=== PATIENT | male | born 1945 | race Caucasian/White ===

== ENCOUNTER → 2016-10-21 | Outpatient (CLI) | payer MEDICARE, OTHER ==
--- NOTE | 2016-10-21 12:20 | FL ---
Modified barium swallow. HISTORY: Dysphagia. Modified barium swallow was performed with the department of speech pathology. The patient was prese nted with various consistencies of barium. There is no evidence for aspiration or penetration. Full report is to follow from the department of speech pathology. Impression: Normal study.
== END | disposition home or self-care (01) ==
LOC: RADFLMAIN 11:07
PROVIDERS: ATTEND Otolaryngology
DX: R13.10 Dysphagia, unspecified (principal)
CPT/HCPCS: 74230

== ENCOUNTER 2016-12-03 00:56 | Inpatient (IN) | payer MEDICARE, OTHER ==
[2016-12-03] MEDS ORDERED: ASPIRIN 81 MG CHEW PO STA (01:13)
[2016-12-03] MEDS ORDERED: NITROGLYCERIN OINT 1 INCH/GM PACKET TOPICAL STA (01:13)
--- NOTE | 2016-12-03 01:16 | ED ---
General Adult HPI - General Chief complaint: Chest Pain Stated complaint: chest pain Time Seen by Provider: 12/03/16 01:03 Source: patient, RN notes reviewed Mode of arrival: wheelchair Limitations: no limitations - History of Present Illness Initial comments: Patient is a pleasant 71-year-old male presenting to the emergency department complaining of chest discomfort. Onset was around 4:30 while golfing. Discomfort has progressively worsened since that time. Discomfort feels somewhat sharp in the left anterior wall. No dyspnea, nausea, or diaphoresis. No history of similar symptoms previously. No leg pain or swelling. No radiation. - Related Data Home Medications Medication Instructions Recorded Confirmed Gabapentin [Neurontin] 300 mg PO HS 10/01/15 10/01/15 Latanoprost Ophth [Xalatan 0.005%] 1 drops BOTH EYES HS 10/01/15 10/01/15 Levothyroxine Sodium [Synthroid] 150 mcg PO DAILY 10/01/15 10/01/15 Simvastatin [Zocor] 40 mg PO HS 10/01/15 10/01/15 Previous Rx's Medication Instructions Recorded Aspirin 325 mg PO BID #60 tab 10/02/15 Docusate [Colace] 100 mg PO DAILY #30 capsule 10/02/15 Famotidine [Pepcid] 20 mg PO DAILY #30 tablet 10/02/15 HYDROcodone/APAP 7.5-325MG [[place] 1 - 2 each PO Q6HR PRN #40 tab 10/02/15 7.5] traMADol HCl [Ultram] 50 mg PO Q6H PRN #40 tab 10/02/15 Allergies Allergy/AdvReac Type Severity Reaction Status Date / Time No Known Allergies Allergy Verified 12/03/16 01:00 Review of Systems ROS Statement: Those systems with pertinent positive or pertinent negative responses have been documented in the HPI. ROS Other: All systems not noted in ROS Statement are negative. Constitutional: Denies: fever Eyes: Denies: eye pain ENT: Denies: ear pain Respiratory: Denies: cough, dyspnea Cardiovascular: Reports: chest pain Endocrine: Denies: fatigue Gastrointestinal: Denies: abdominal pain Genitourinary: Denies: dysuria Musculoskeletal: Denies: back pain Skin: Denies: rash Neurological: Denies: weakness Past Medical History Past Medical History: Coronary Artery Disease (CAD), Cancer, Eye Disorder, GERD/ Reflux, Hyperlipidemia, Osteoarthritis (OA), Thyroid Disorder Additional Past Medical History / Comment(s): MILD CA 1995; RECENT CV W/U - APPROVED FOR SURGERY, CLEARANCE ON CHART. HX CA PARATHYROID. OCC GERD. USING RX FOR PRE-GLAUCOMA. HAS "BAD NECK", C6-7; SLEEPS IN [place]. History of Any Multi-Drug Resistant Organisms: None Reported Past Surgical History: Orthopedic Surgery Additional Past Surgical History / Comment(s): HEMORROIDECTOMY. HAMMER TOE. THYROIDECTOMY. Past Anesthesia/Blood Transfusion Reactions: No Reported Reaction Past Psychological History: No Psychological Hx Reported Smoking Status: Former smoker Past Alcohol Use History: Daily Past Drug Use History: None Reported - Past Family History Mother Family Medical History: No Reported History General Exam Limitations: no limitations General appearance: alert, in no apparent distress Head exam: Present: atraumatic Eye exam: Present: normal appearance, PERRL ENT exam: Present: normal oropharynx Neck exam: Present: normal inspection Respiratory exam: Present: normal lung sounds bilaterally, chest wall tenderness (Mild tenderness left anterior chest) Cardiovascular Exam: Present: regular rate, normal rhythm Expanded Peripheral pulses: 2+: Radial (R), Radial (L), Posterior Tibialis (R), Posterior Tibialis (L) GI/Abdominal exam: Present: soft. Absent: tenderness Extremities exam: Present: normal inspection. Absent: pedal edema, calf tenderness Neurological exam: Present: alert Psychiatric exam: Present: normal affect, normal mood Skin exam: Present: normal color Course Vital Signs 12/03/16 12/03/16 12/03/16 00:58 01:34 02:11 Temperature 97.5 F L Pulse Rate 75 81 63 Respiratory 18 18 18 Rate Blood Pressure 194/91 169/81 171/77 O2 Sat by Pulse 98 96 96 Oximetry EKG Findings - EKG Comments: EKG Findings:: Normal sinus rhythm 70. GA 194. QRS 92. QT 394. QTC 425. Normal axis. Normal QRS. No acute ST change. Medical Decision Making - Medical Decision Making Patient reevaluated and resting comfortably in bed. Case discussed with Dr. Barrios, who will admit his patient. Patient and family updated on results and plan. - Lab Data Result diagrams: 12/03/16 01:15 12/03/16 01:15 Lab Results 12/03/16 12/03/16 12/03/16 Range/Units 01:15 01:15 01:15 WBC 10.1 (3.8-10.6) k/uL RBC 4.42 (4.30-5.90) m/uL Hgb 14.9 (13.0-17.5) gm/dL Hct 42.3 (39.0-53.0) % MCV 95.7 (80.0-100.0) fL MCH 33.7 (25.0-35.0) pg MCHC 35.2 (31.0-37.0) g/dL RDW 13.7 (11.5-15.5) % Plt Count 169 (150-450) k/uL Neutrophils % 68 % Lymphocytes % 21 % Monocytes % 5 % Eosinophils % 3 % Basophils % 0 % Neutrophils # 6.9 (1.3-7.7) k/uL Lymphocytes # 2.1 (1.0-4.8) k/uL Monocytes # 0.5 (0-1.0) k/uL Eosinophils # 0.3 (0-0.7) k/uL Basophils # 0.0 (0-0.2) k/uL PT (9.0-12.0) sec INR (<1.1) APTT (22.0-30.0) sec D-Dimer (<0.60) mg/L FEU Sodium 140 (137-145) mmol/L Potassium 4.3 (3.5-5.1) mmol/L Chloride 106 (98-107) mmol/L Carbon Dioxide 22 (22-30) mmol/L Anion Gap 12 mmol/L BUN 15 (9-20) mg/dL Creatinine 0.90 (0.66-1.25) mg/dL Est GFR (MDRD) Af Amer >60 (>60 ml/min/1.73 sqM) Est GFR (MDRD) Non-Af >60 (>60 ml/min/1.73 sqM) Glucose 115 H (74-99) mg/dL Calcium 9.4 (8.4-10.2) mg/dL Magnesium 1.7 (1.6-2.3) mg/dL Total Bilirubin 0.8 (0.2-1.3) mg/dL AST 45 (17-59) U/L ALT 66 (21-72) U/L Alkaline Phosphatase 53 (38-126) U/L Total Creatine Kinase 81 (55-170) U/L CK-MB (CK-2) 0.8 (0.0-2.4) ng/mL CK-MB (CK-2) Rel Index 1.0 Troponin I <0.012 (0.000-0.034) ng/mL Total Protein 7.0 (6.3-8.2) g/dL Albumin 4.2 (3.5-5.0) g/dL 12/03/16 Range/Units 01:15 WBC (3.8-10.6) k/uL RBC (4.30-5.90) m/uL Hgb (13.0-17.5) gm/dL Hct (39.0-53.0) % MCV (80.0-100.0) fL MCH (25.0-35.0) pg MCHC (31.0-37.0) g/dL RDW (11.5-15.5) % Plt Count (150-450) k/uL Neutrophils % % Lymphocytes % % Monocytes % % Eosinophils % % Basophils % % Neutrophils # (1.3-7.7) k/uL Lymphocytes # (1.0-4.8) k/uL Monocytes # (0-1.0) k/uL Eosinophils # (0-0.7) k/uL Basophils # (0-0.2) k/uL PT 10.6 (9.0-12.0) sec INR 1.0 (<1.1) APTT 23.0 (22.0-30.0) sec D-Dimer 0.53 (<0.60) mg/L FEU Sodium (137-145) mmol/L Potassium (3.5-5.1) mmol/L Chloride (98-107) mmol/L Carbon Dioxide (22-30) mmol/L Anion Gap mmol/L BUN (9-20) mg/dL Creatinine (0.66-1.25) mg/dL Est GFR (MDRD) Af Amer (>60 ml/min/1.73 sqM) Est GFR (MDRD) Non-Af (>60 ml/min/1.73 sqM) Glucose (74-99) mg/dL Calcium (8.4-10.2) mg/dL Magnesium (1.6-2.3) mg/dL Total Bilirubin (0.2-1.3) mg/dL AST (17-59) U/L ALT (21-72) U/L Alkaline Phosphatase (38-126) U/L Total Creatine Kinase (55-170) U/L CK-MB (CK-2) (0.0-2.4) ng/mL CK-MB (CK-2) Rel Index Troponin I (0.000-0.034) ng/mL Total Protein (6.3-8.2) g/dL Albumin (3.5-5.0) g/dL - Radiology Data Radiology results: image reviewed (Chest x-ray shows no acute process) Disposition Clinical Impression: Unstable angina pectoris Disposition: ADMITTED IP TO THIS [facility] Referrals: Jeffrey Barrios MD [Primary Care Provider] - 1-2 days Decision Time: 02:41
[2016-12-03 01:25] LABS: Basophils % (A) 0 %; CH 34.4; CHCM 36.1; Eosinophils # (A) 0.3 k/uL (0-0.7); Eosinophils % (A) 3 %; HCT 42.3 % (39.0-53.0); HGB 14.9 gm/dL (13.0-17.5); Luc # (Auto) 0.17; Luc % (Auto) 2; Lymphocytes # (A) 2.1 k/uL (1.0-4.8); Lymphocytes % (A) 21 %; MCH 33.7 pg (25.0-35.0); MCHC 35.2 g/dL (31.0-37.0); MCV 95.7 fL (80.0-100.0); Monocytes # (A) 0.5 k/uL (0-1.0); Monocytes % (A) 5 %; Neutrophils # (A) 6.9 k/uL (1.3-7.7); Neutrophils % (A) 68 %; RBC 4.42 m/uL (4.30-5.90); RDW 13.7 % (11.5-15.5); WBC 10.1 k/uL (3.8-10.6); WBC (Perox) 9.32
[2016-12-03 01:34] LABS: ALT 66 U/L (21-72); AST 45 U/L (17-59); Alkaline Phosphatase 53 U/L (38-126); Anion Gap 12 mmol/L; Blood Urea Nitrogen 15 mg/dL (9-20); Calcium 9.4 mg/dL (8.4-10.2); Carbon Dioxide 22 mmol/L (22-30); Chloride 106 mmol/L (98-107); Glucose 115 mg/dL (74-99); Magnesium 1.7 mg/dL (1.6-2.3); Non-African American GFR(MDRD) >60 (>60 ml/min/1.73 sqM); Potassium 4.3 mmol/L (3.5-5.1); Sodium 140 mmol/L (137-145); Total Bilirubin 0.8 mg/dL (0.2-1.3)
[2016-12-03 01:45] LABS: Prothrombin Time 10.6 sec (9.0-12.0)
[2016-12-03 01:58] LABS: Creatine Kinase 81 U/L (55-170)
--- NOTE | 2016-12-03 02:10 | XR ---
EXAM: XR Chest, 2 Views CLINICAL HISTORY: Reason: Chest Pain TECHNIQUE: Frontal and lateral views of the chest. COMPARISON: No relevant prior studies available. FINDINGS: Lungs: Hypoventilatory examination. No focal consolidation. Pleural space: Unremarkable. No pneumothorax. Heart: Unremarkable. No cardiomegaly. Mediastinum: Unremarkable. Bones/joints: No acute osseous abnormality. Tubes, lines and devices: Telemetry leads overlie the patient. IMPRESSION: Hypoventilatory examination without evidence of acute cardiopulmonary disease.
[2016-12-03 02:12] LABS: Creatine Kinase MB 0.8 ng/mL (0.0-2.4); Troponin I <0.012 ng/mL (0.000-0.034)
[2016-12-03] MEDS ORDERED: HEPARIN SODIUM,PORCINE 5,000 UNIT/ML 1 ML VIAL IV PRN (02:42)
[2016-12-03] MEDS ORDERED: HEPARIN SODIUM,PORCINE 5,000 UNIT/ML 1 ML VIAL IV ONE (02:42)
[2016-12-03] MEDS ORDERED: NITROGLYCERIN SL TABS 0.4 MG TAB SUBLINGUAL PRN ×2 (02:42→15:12)
[2016-12-03] MEDS ORDERED: HEPARIN SODIUM,PORCINE/D5W PMX 25,000 UNIT in DEXTROSE/WATER 1 500ML.BAG IV SCH (02:45)
[2016-12-03 04:10] VITALS: BMI 30.7
[2016-12-03] MEDS ORDERED: NITROGLYCERIN OINT 1 INCH/GM PACKET TOPICAL SCH (07:00)
[2016-12-03 08:23] LABS: Mean Platelet Volume 7.4
[2016-12-03 08:36] LABS: Creatine Kinase 47 U/L (55-170)
[2016-12-03 08:49] LABS: Creatine Kinase MB 0.7 ng/mL (0.0-2.4); Troponin I <0.012 ng/mL (0.000-0.034)
--- NOTE | 2016-12-03 11:03 | P.CRDCN ---
History of Present Illness Consult date: 12/03/16 Requesting physician: Jeffrey Barrios Consult reason: chest pain Chief complaint: Chest pain History of present illness: This is a pleasant 71-year-old gentleman with history of hyperlipidemia, hypothyroidism, GERD, who follows with Dr. Dr. Grimaldo in the office. He presents to the hospital with symptoms of chest discomfort. Patient states that he was golfing yesterday and noticed some chest pain and heaviness in the left side of his chest. He denies any associated symptoms of shortness of breath, diaphoresis, or nausea. He continued to complete his golf game, stating that the pain would come and go throughout the day. Around 10:00 last evening the pain returned, this time it did not subside and for this reason he came to the emergency room for further evaluation. Patient denies any prior history of coronary artery disease, he had a Lexiscan stress test performed in September 2015 at the office which was negative for any reversible ischemia. An echocardiogram with Doppler study was also performed at that time which revealed a normal left ventricular systolic function. Let pressure on arrival here 194/90 with a heart rate in the 70s, 90% on room air. Blood pressure this morning 138/60 with heart rate in the 50s, temperature 97.7. CBC normal. D-dimer negative. Potassium 4.3, BUN 15, creatinine 0.9. Troponins were negative 2. Magnesium level I.7. EKG on presentation here shows normal sinus rhythm with inferior Q waves and T-wave inversion in the inferior leads. Subsequent EKG performed this morning shows a normal sinus rhythm with nonspecific ST-T changes in the inferior leads. At the time of my examination this morning, patient is currently chest pain free. He is currently on aspirin , IV heparin and Nitropaste. Past Medical History Past Medical History: Coronary Artery Disease (CAD), Cancer, Eye Disorder, GERD/ Reflux, Hyperlipidemia, Osteoarthritis (OA), Thyroid Disorder Additional Past Medical History / Comment(s): MILD [place] 1995; RECENT CV W/U - APPROVED FOR SURGERY, CLEARANCE ON CHART. HX CA PARATHYROID. OCC GERD. USING RX FOR PRE-GLAUCOMA. HAS "BAD NECK", C4-5 - epidural injections and neurontin; SLEEPS [place]. History of Any Multi-Drug Resistant Organisms: None Reported Past Surgical History: Orthopedic Surgery Additional Past Surgical History / Comment(s): HEMORROIDECTOMY. HAMMER TOE. THYROIDECTOMY, left hip replaced 09/2015 Past Anesthesia/Blood Transfusion Reactions: No Reported Reaction Past Psychological History: No Psychological Hx Reported Smoking Status: Former smoker Past Alcohol Use History: Daily Past Drug Use History: None Reported - Past Family History Mother Family Medical History: No Reported History Medications and Allergies Home Medications Medication Instructions Recorded Confirmed Type Gabapentin [Neurontin] 300 mg PO HS 10/01/15 12/03/16 History Latanoprost Ophth [Xalatan 0.005%] 1 drops BOTH EYES HS 10/01/15 12/03/16 History Levothyroxine Sodium [Synthroid] 150 mcg PO DAILY 10/01/15 12/03/16 History Simvastatin [Zocor] 40 mg PO HS 10/01/15 12/03/16 History Aspirin 325 mg PO DAILY 12/03/16 12/03/16 History Celecoxib [CeleBREX] 200 mg PO DAILY PRN 12/03/16 12/03/16 History Allergies Allergy/AdvReac Type Severity Reaction Status Date / Time No Known Allergies Allergy Verified 12/03/16 08:07 Physical Exam Vitals: Vital Signs Temp Pulse Pulse Pulse Resp BP BP 12/03/16 08:00 16 12/03/16 07:43 12/03/16 07:42 97.7 F 56 L 16 138/66 12/03/16 04:00 97.9 F 58 L 62 18 162/77 12/03/16 03:19 97.7 F 63 18 157/82 12/03/16 02:11 63 18 171/77 12/03/16 01:34 81 18 169/81 12/03/16 00:58 97.5 F L 75 18 194/91 Pulse Ox 12/03/16 08:00 12/03/16 07:43 97 12/03/16 07:42 97 12/03/16 04:00 97 12/03/16 03:19 97 12/03/16 02:11 96 12/03/16 01:34 96 12/03/16 00:58 98 Intake and Output 12/02/16 12/03/16 12/03/16 22:59 06:59 14:59 Other: Voiding Method Toilet Toilet # Voids 2 Weight 99.79 kg PHYSICAL EXAMINATION: HEENT: [Head is atraumatic, normocephalic. Pupils equal, round. Neck is supple. There is no elevated jugular venous pressure.] HEART EXAMINATION: [Heart S1, S2 normal. No murmur or gallop heard.] CHEST EXAMINATION:[ Lungs are clear to auscultation and precussion. No chest wall tenderness is noted on palpation or with deep breathing.] ABDOMEN: [ Soft, nontender. Bowel sounds are heard. No organomegaly noted]. EXTREMITIES:[ 2+ peripheral pulses with no evidence of peripheral edema and no calf tenderness noted]. NEUROLOGIC [patient is awake, alert and oriented -3.] . Results 12/03/16 07:52 12/03/16 01:15 Cardiac Enzymes 12/03/16 12/03/16 12/03/16 Range/Units 01:15 01:15 07:52 AST 45 (17-59) U/L CK-MB (CK-2) 0.8 0.7 (0.0-2.4) ng/mL Troponin I <0.012 <0.012 (0.000-0.034) ng/mL Coagulation 12/03/16 Range/Units 01:15 PT 10.6 (9.0-12.0) sec APTT 23.0 (22.0-30.0) sec CBC 12/03/16 12/03/16 Range/Units 01:15 07:52 WBC 10.1 (3.8-10.6) k/uL RBC 4.42 (4.30-5.90) m/uL Hgb 14.9 (13.0-17.5) gm/dL Hct 42.3 (39.0-53.0) % Plt Count 169 159 (150-450) k/uL Comprehensive Metabolic Panel 12/03/16 Range/Units 01:15 Sodium 140 (137-145) mmol/L Potassium 4.3 (3.5-5.1) mmol/L Chloride 106 (98-107) mmol/L Carbon Dioxide 22 (22-30) mmol/L BUN 15 (9-20) mg/dL Creatinine 0.90 (0.66-1.25) mg/dL Glucose 115 H (74-99) mg/dL Calcium 9.4 (8.4-10.2) mg/dL AST 45 (17-59) U/L ALT 66 (21-72) U/L Alkaline Phosphatase 53 (38-126) U/L Total Protein 7.0 (6.3-8.2) g/dL Albumin 4.2 (3.5-5.0) g/dL Current Medications Generic Name Dose Route Start Last Admin Trade Name Freq PRN Reason Stop Dose Admin Aspirin 325 mg 12/04/16 09:00 Aspirin PO DAILY [facility] Heparin Sodium (Porcine) 0 unit 12/03/16 02:42 Heparin IV Q6HR PRN Low PTT Protocol Heparin Sodium/Dextrose 25,000 500 mls @ 20.15 mls/hr 12/03/16 02:45 03:16 unit/ IV Solution IV 10.02 units/kg/hr .Q24H MARNI 20 mls/hr Protocol Administration 10.1 UNITS/KG/HR Nitroglycerin 1 inch 12/03/16 07:00 Nitro-Bid Oint TOPICAL Q6HR [facility] Nitroglycerin 0.4 mg 12/03/16 02:42 Nitrostat SUBLINGUAL Q5M PRN Chest Pain Intake and Output 12/02/16 12/03/16 12/03/16 22:59 06:59 14:59 Other: Voiding Method Toilet Toilet # Voids 2 Weight 99.79 kg 12/03/16 07:52 12/03/16 01:15 EKG Interpretations (text) EKG shows normal sinus rhythm with inferior Q waves and nonspecific inferior ST- T wave changes Assessment and Plan Plan: Assessment and plan #1 chest discomfort suggestive of possible unstable angina. 2 troponins have been negative. EKG shows normal sinus rhythm with inferior Q waves and nonspecific ST-T wave changes in the inferior leads. Most recent Veronica scan was performed in September 2015 which did not reveal any reversible ischemia. #2 hypothyroidism #3 hyperlipidemia #4 osteoarthritis #5 hypertension, no prior documented history of hypertension Plan We will obtain an echocardiogram with Doppler study as well as a third troponin value. Continue statin, decrease aspirin to 81 mg daily, Ativan ALLY inhibitor to his medication regime for more optimal blood pressure control. Further recommendations to follow. DNP note has been reviewed, I agree with a documented findings and plan of care. Patient was seen and examined.
[2016-12-03] MEDS ORDERED: ACETAMINOPHEN TAB 325 MG TAB PO PRN (11:45)
--- NOTE | 2016-12-03 11:49 | P.HPIM ---
History of Present Illness 71-year-old male admitted from the emergency room with complaints of chest pain post golfing. States sharp pain is gone but continues with chest pressure. Patient to be evaluated by cardiology. Patient does have history of hyperlipidemia hypothyroidism and coronary artery disease possible [place] in 1995 Review of Systems Cardiovascular: Reports chest pain Past Medical History Past Medical History: Coronary Artery Disease (CAD), Cancer, Eye Disorder, GERD/ Reflux, Hyperlipidemia, Osteoarthritis (OA), Thyroid Disorder Additional Past Medical History / Comment(s): MILD [place] 1995; RECENT CV W/U - APPROVED FOR SURGERY, CLEARANCE ON CHART. HX CA PARATHYROID. OCC GERD. USING RX FOR PRE-GLAUCOMA. HAS "BAD NECK", C4-5 - epidural injections and neurontin; SLEEPS IN [place]. History of Any Multi-Drug Resistant Organisms: None Reported Past Surgical History: Orthopedic Surgery Additional Past Surgical History / Comment(s): HEMORROIDECTOMY. HAMMER TOE. THYROIDECTOMY, left hip replaced 09/2015 Past Anesthesia/Blood Transfusion Reactions: No Reported Reaction Past Psychological History: No Psychological Hx Reported Smoking Status: Former smoker Past Alcohol Use History: Daily Past Drug Use History: None Reported - Past Family History Mother Family Medical History: No Reported History Medications and Allergies Home Medications Medication Instructions Recorded Confirmed Type Gabapentin [Neurontin] 300 mg PO HS 10/01/15 12/03/16 History Latanoprost Ophth [Xalatan 0.005%] 1 drops BOTH EYES HS 10/01/15 12/03/16 History Levothyroxine Sodium [Synthroid] 150 mcg PO DAILY 10/01/15 12/03/16 History Simvastatin [Zocor] 40 mg PO HS 10/01/15 12/03/16 History Aspirin 325 mg PO DAILY 12/03/16 12/03/16 History Celecoxib [CeleBREX] 200 mg PO DAILY PRN 12/03/16 12/03/16 History Allergies Allergy/AdvReac Type Severity Reaction Status Date / Time No Known Allergies Allergy Verified 12/03/16 08:07 Physical Exam Vitals: Vital Signs Temp Pulse Pulse Pulse Resp BP BP 12/03/16 08:00 16 12/03/16 07:43 12/03/16 07:42 97.7 F 56 L 16 138/66 12/03/16 04:00 97.9 F 58 L 62 18 162/77 12/03/16 03:19 97.7 F 63 18 157/82 12/03/16 02:11 63 18 171/77 12/03/16 01:34 81 18 169/81 12/03/16 00:58 97.5 F L 75 18 194/91 Pulse Ox 12/03/16 08:00 12/03/16 07:43 97 12/03/16 07:42 97 12/03/16 04:00 97 12/03/16 03:19 97 12/03/16 02:11 96 12/03/16 01:34 96 12/03/16 00:58 98 Intake and Output 12/02/16 12/03/16 12/03/16 22:59 06:59 14:59 Other: Voiding Method Toilet Toilet # Voids 2 Weight 99.79 kg - Constitutional General appearance: mild distress - EENT Eyes: PERRLA Ears: bilateral: normal - Neck Neck: normal ROM - Respiratory Respiratory: bilateral: CTA - Cardiovascular Rhythm: regular - Gastrointestinal General gastrointestinal: soft - Integumentary Integumentary: normal - Neurologic Neurologic: CNII-XII intact - Psychiatric Psychiatric: A&O x's 3, appropriate affect, intact judgment & insight Results CBC & Chem 7: 12/03/16 07:52 12/03/16 01:15 Labs: Abnormal Lab Results - Last 24 Hours (Table) 12/03/16 12/03/16 Range/Units 01:15 07:52 Glucose 115 H (74-99) mg/dL Total Creatine Kinase 47 L (55-170) U/L Chest x-ray: report reviewed Thrombosis Risk Factor Assmnt - Choose All That Apply Each Factor Represents 1 point: Obesity (BMI >25) Each Risk Factor Represents 2 Points: Age 61-74 years Thrombosis Risk Factor Assessment Total Risk Factor Score: 3 Thrombosis Risk Factor Assessment Level: Moderate Risk Assessment and Plan Plan: Assessment Unstable angina troponins negative 2 EKG changes history of coronary disease with possible [place] in the past Hypothyroidism Hyperlipidemia Osteoarthritis Hypertension Plan Continue consultation with cardiology possible cardiac cath
[2016-12-03] MEDS: LISINOPRIL 5 MG TAB PO SCH (12:09)
[2016-12-03] MEDS ORDERED: MELOXICAM 7.5 MG TAB PO PRN (12:32)
[2016-12-03 13:57] LABS: Creatine Kinase 44 U/L (55-170)
[2016-12-03 14:09] LABS: Creatine Kinase MB 0.5 ng/mL (0.0-2.4); Troponin I <0.012 ng/mL (0.000-0.034)
[2016-12-03] MEDS ORDERED: ASPIRIN 325 MG TAB PO STA (15:12)
[2016-12-03] MEDS ORDERED: SODIUM CHLORIDE 0.9% 1,000 ML in EMPTY BAG 1 BAG IV ONE (15:12)
[2016-12-03] MEDS ORDERED: ALPRAZolam 0.5 MG TAB PO PRN (15:12)
[2016-12-03] MEDS ORDERED: ATORVASTATIN 80 MG TAB PO STA (15:12)
[2016-12-03] MEDS ORDERED: ALPRAZolam 0.25 MG TAB PO PRN (15:12)
[2016-12-03] MEDS: LEVOTHYROXINE 75 MCG TAB PO SCH (16:47)
[2016-12-03] MEDS: ATORVASTATIN 20 MG TAB PO SCH (20:10)
[2016-12-03] MEDS ORDERED: GABAPENTIN 300 MG CAP PO SCH (21:00)
[2016-12-03] MEDS ORDERED: LATANOPROST 0.005% OPHTH DROPS 2.5 ML BTL BOTH EYES SCH (21:00)
[2016-12-04 05:57] LABS: Cholesterol 159 mg/dL (<200); HDL Cholesterol 56 mg/dL (40-60); Triglycerides 139 mg/dL (<150)
[2016-12-04] MEDS: LEVOTHYROXINE 75 MCG TAB PO SCH (06:15)
[2016-12-04] MEDS: LISINOPRIL 5 MG TAB PO SCH (06:15)
[2016-12-04] MEDS: ATORVASTATIN 20 MG TAB PO SCH (06:18)
[2016-12-04] MEDS ORDERED: LIDOCAINE 2% INJ 20 MG/ML (20 ML MDV) ONE (07:17)
[2016-12-04] MEDS ORDERED: IV FLUID CONTINUATION 1,000 ML IV ONE (07:30)
[2016-12-04] MEDS ORDERED: MIDAZOLAM 2 MG/2 ML VIAL ONE (07:39)
[2016-12-04] MEDS ORDERED: MIDAZOLAM 2 MG/2 ML VIAL IV ONE (07:39)
[2016-12-04] MEDS ORDERED: LIDOCAINE 2% INJ 20 MG/ML SQ ONE (07:40)
[2016-12-04] MEDS ORDERED: fentaNYL (PF) 50 MCG/ML 2 ML AMP IV ONE (07:41)
[2016-12-04] MEDS ORDERED: fentaNYL (PF) 50 MCG/ML 2 ML AMP ONE (07:41)
[2016-12-04] MEDS ORDERED: IOHEXOL 350 MG/ML 125ML BOTTLE INJ ONE (07:55)
[2016-12-04] MEDS ORDERED: RX INFO: IV CONTRAST WAS GIVEN 1 EACH MISC MISCELLANE PRN (08:02)
--- NOTE | 2016-12-04 08:08 | P.PCN ---
Date of Procedure: 12/04/16 Preoperative Diagnosis: Unstable angina Postoperative Diagnosis: Normal coronary arteries Procedure(s) Performed: Left heart catheterization with left ventriculography Implants: Indications for Procedure: Operative Findings: Description of Procedure: HISTORY: This is a 71-year-old gentleman with history of hypertension and hypercholesterolemia who was admitted to the hospital with complaints of prolonged chest pain with a minor EKG abnormalities. Patient is advised to have cardiac catheterization for definitive diagnosis. Patient and family were explained the risks and benefits of the procedure. CONSENT:I have discussed the risks, benefits and alternative therapies for the above-mentioned procedure and for both sedation/analgesia as well as necessary blood product administration, if indicated, as they pertain to this patient. The patient has indicated understanding and acceptance of the risks and procedures discussed. CONSCIOUS SEDATION: Patient was given 1 mg of Versed and 50 g of fentanyl for sedation. The duration of the sedation was 21 minutes. PROCEDURE: Patient was brought to the lab in a fasting state. Patient was given some IV sedation. The right groin is infiltrated with lidocaine and right femoral artery was entered using Seldinger technique. A 6-Dutch catheter was left in place and selective coronary arteriography and left ventriculography was performed. Patient tolerated the procedure well. Femoral angiogram was performed and Angio-Seal was applied for hemostasis. No immediate complications were noted and patient was transferred to [facility] in a stable condition HEMODYNAMICS: The aortic pressure is 160/80. Left ankle end-diastolic pressure about 12. There was no gradient across the aortic valve. SELECTIVE CORONARY ARTERIOGRAPHY: LEFT MAIN: Normal length and patent. THE LEFT ANTERIOR DESCENDING CORONARY ARTERY: This is a moderate caliber vessel giving rise a couple of septal and diagonal branches. It the LAD and branches are free of any significant occlusive disease. THE LEFT CIRCUMFLEX AND IS CORONARY ARTERY: This is a good caliber vessel giving rise good-sized OM branch and free of occlusive disease. THE RIGHT CORONARY ARTERY: This is dominant vessel free of occlusive disease LEFT VENTRICULOGRAPHY: Normal-sized cardiac silhouette with good systolic function FINAL IMPRESSION: #1. Normal coronary arteries #2. Normal LV function #3. Normal hemodynamics. #4 hypertension. PLAN: Maximum medical therapy and risk factor modification PROGNOSIS: Good
[2016-12-04] MEDS ORDERED: SODIUM CHLORIDE 0.9% 1,000 ML IV SCH (08:15)
[2016-12-04] MEDS ORDERED: ASPIRIN 325 MG TAB PO SCH ×2 (09:00)
[2016-12-04] MEDS ORDERED: ASPIRIN 81 MG CHEW PO SCH (09:00)
--- NOTE | 2016-12-04 10:26 | ECHOF ---
Referral Reason:chest pain MEASUREMENTS -------- HEIGHT: 157.5 cm WEIGHT: 99.8 kg BP: RVIDd: 2.9 cm (< 3.3) IVSd: 1.3 cm (0.6 - 1.1) LVIDd: 5.7 cm (3.9 - 5.3) LVPWd: 1.4 cm (0.6 - 1.1) IVSs: 1.7 cm LVIDs: 3.0 cm LVPWs: 1.4 cm LA Diam: 3.8 cm (2.7 - 3.8) LAESV Index (A-L): 28.88 ml/m Ao Diam: 3.6 cm (2.0 - 3.7) AV Cusp: 1.8 cm (1.5 - 2.6) LA Diam: 4.6 cm (2.7 - 3.8) MV E Wesly: 0.58 m/s MV DecT: 210 ms MV A Wesly: 0.68 m/s MV E/A Ratio: 0.85 RAP: 5.00 mmHg RVSP: 27.32 mmHg FINDINGS -------- Sinus rhythm. This was a technically adequate study. There is mild concentric left ventricular hypertrophy. Overall left ventricular systolic function is low-normal with, an EF between 50 - 55 %. The right ventricle is normal in size. Normal LA size by volume 22+/-6 ml/m2. The right atrial size is normal. There is mild aortic valve sclerosis. There is no evidence of aortic regurgitation. Mild mitral annular calcification present. Mild mitral regurgitation is present. Mild tricuspid regurgitation present. There is no evidence of pulmonary hypertension. The right ventricular systolic pressure, as measured by Doppler, is 27.32mmHg. There is no pulmonic regurgitation present. The aortic root size is normal. There is no pericardial effusion. CONCLUSIONS -------- 1. There is mild concentric left ventricular hypertrophy. 2. The aortic root size is normal. 3. There is no pericardial effusion. 4. Overall left ventricular systolic function is low-normal with, an EF between 50 - 55 %. 5. There is mild aortic valve sclerosis. 6. Mild mitral annular calcification present. 7. Mild mitral regurgitation is present. 8. Mild tricuspid regurgitation present. 9. There is no evidence of pulmonary hypertension. 10. The right ventricular systolic pressure, as measured by Doppler, is 27.32mmHg. 11. There is no pulmonic regurgitation present. DRAMATIC CRITIC: Rowan Myers RDCS
--- NOTE | 2016-12-04 11:01 | P.DS ---
Providers Date of admission: 12/03/16 07:26 Expected date of discharge: 12/04/16 Attending physician: Jeffrey Barrios Consults: 12/03/16 02:42 Consult Physician Urgent Consulting Provider: Nancy Grimaldo Consult Reason/Comments: ua Do you want consulting provider notified?: Yes Primary care physician: Jeffrey Barrios Hospital Course: 71-year-old male is admitted to the emergency room with complaints of chest pain progressive after golf loading. Patient was evaluated by cardiology had negative cardiac catheterization. Has been released by cardiology for discharge home. Plan for gallbladder workup outpatient Assessment chest pain troponins negative positive for EKG changes and negative cardiac catheterization Hypothyroidism Coronary artery disease Hyperlipidemia Osteoarthritis Hypertension Plan Follow-up with cardiology and family physician Dr. Jeffrey Barrios We'll do outpatient studies on gallbladder Plan - Discharge Summary New Discharge Prescriptions: No Action Simvastatin [Zocor] 40 mg PO HS Gabapentin [Neurontin] 300 mg PO HS Latanoprost Ophth [Xalatan 0.005%] 1 drops BOTH EYES HS Levothyroxine Sodium [Synthroid] 150 mcg PO DAILY Aspirin 325 mg PO DAILY Celecoxib [CeleBREX] 200 mg PO DAILY PRN PRN Reason: Pain Discharge Medication List Gabapentin [Neurontin] 300 mg PO HS 10/01/15 [History] Latanoprost Ophth [Xalatan 0.005%] 1 drops BOTH EYES HS 10/01/15 [History] Levothyroxine Sodium [Synthroid] 150 mcg PO DAILY 10/01/15 [History] Simvastatin [Zocor] 40 mg PO HS 10/01/15 [History] Aspirin 325 mg PO DAILY 12/03/16 [History] Celecoxib [CeleBREX] 200 mg PO DAILY PRN 12/03/16 [History] Follow up Appointment(s)/Referral(s): Jeffrey Barrios MD [Primary Care Provider] - 1-2 days
[2016-12-04 12:23] VITALS: BP 135/69; PULSE 60; RESP 19; TEMP 97.7
== END 2016-12-04 13:39 | disposition home or self-care (01) | DRG 287 ==
LOC: EC 00:56 → 3OBS 02:41 → OBSVTOIN 07:26
PROVIDERS: ADMIT Family Medicine; ATTEND Family Medicine
PROC: B2111ZZ Fluoroscopy of Multiple Coronary Arteries using Low Osmolar Contrast (ICD-10-PCS; 2016-12-04)
PROC: B2151ZZ Fluoroscopy of Left Heart using Low Osmolar Contrast (ICD-10-PCS; 2016-12-04)
PROC: 4A023N7 Measurement of Cardiac Sampling and Pressure, Left Heart, Percutaneous Approach (ICD-10-PCS; principal; 2016-12-04 07:30)
DX: R07.9 Chest pain, unspecified (principal); I10 Essential (primary) hypertension; E78.00 Pure hypercholesterolemia, unspecified; E78.5 Hyperlipidemia, unspecified; E03.9 Hypothyroidism, unspecified; I25.2 Old myocardial infarction; I25.10 Atherosclerotic heart disease of native coronary artery without angina pectoris; K21.9 Gastro-esophageal reflux disease without esophagitis; M19.91 Primary osteoarthritis, unspecified site; Z96.642 Presence of left artificial hip joint; Z87.891 Personal history of nicotine dependence; Z79.82 Long term (current) use of aspirin; Z79.899 Other long term (current) drug therapy
CPT/HCPCS: 36415; 71020; 80053; 80061; 82550; 82553; 83735; 84484; 85025; 85049; 85379; 85610; 85730; 93005; 93306; 93458; 94760; 96365; 96376; 99285

== ENCOUNTER → 2016-12-19 | Outpatient (CLI) | payer MEDICARE, OTHER ==
--- NOTE | 2016-12-19 08:53 | US ---
EXAMINATION TYPE: US gallbladder DATE OF EXAM: 12/19/2016 COMPARISON: NONE CLINICAL HISTORY: 71-year-old male R10 ABD PAIN. Patient stated had left chest wall pain while playin g golf last week requiring follow up hospitalization. TECHNIQUE: Multiple sonographic images of the right upper quadrant are obtained. FINDINGS: Liver Length: 17.0 cm Gallbladder Wall: 0.2 cm CBD: 0.4 cm Right Kidney: 12.0 x 6.5 x 5.2 cm Pancreas: Limited visualization of the pancreatic head and tail secondary to bowel gas. Visualized p ortions show no gross abnormality. Liver: Borderline enlarged. Echogenic with far field attenuation. This secondarily limits assessment for focal lesion. Gallbladder: No abnormal distention, wall thickening, pericholecystic fluid, or shadowing calculi. Evidence for sonographic Grider's sign: No CBD: wnl Right Kidney: clustered and shadowing lower pole renal stones = 1.1 x 0.7 x 0.5cm. No hydronephrosis . IMPRESSION: 1. Borderline hepatomegaly with moderate hepatic steatosis. Correlate with LFTs, lipid profile, and p atient risk factors. 2. 1.1 cm nonobstructive lower pole right renal calculus.
== END | disposition home or self-care (01) ==
LOC: RADUSWWP 07:59
PROVIDERS: ATTEND Family Medicine
DX: N20.0 Calculus of kidney (principal); R16.0 Hepatomegaly, not elsewhere classified; K76.0 Fatty (change of) liver, not elsewhere classified
CPT/HCPCS: 76705

== ENCOUNTER → 2019-04-22 | Outpatient (CLI) | payer MEDICARE, OTHER ==
--- NOTE | 2019-04-22 11:17 | XR ---
EXAMINATION TYPE: XR chest 2V DATE OF EXAM: 04/22/2019 COMPARISON: 11/25/2016 HISTORY: Cough for 6 months. History of thyroid carcinoma. TECHNIQUE: Frontal and lateral views of the chest are obtained. FINDINGS: There is no focal air space opacity, pleural effusion, or pneumothorax seen. The cardiac silhouette size is within normal limits. The osseous structures are intact. Minimal multilevel deg enerative changes of the spine. IMPRESSION: No acute cardiopulmonary process.
== END | disposition home or self-care (01) ==
LOC: RADXRMAIN 10:20
PROVIDERS: ATTEND Family Medicine
DX: R05 Cough (principal)
CPT/HCPCS: 71046

== ENCOUNTER 2020-07-18 08:55 | Day surgery (SDC) | payer MEDICARE, OTHER ==
[2020-07-16 10:37] VITALS: BMI 30.7
--- NOTE | 2020-07-18 08:11 | P.GSHP ---
History of Present Illness H&P Date: 07/18/20 CHIEF COMPLAINT: Colon screen HISTORY OF PRESENT ILLNESS: The patient is a 75-year-old male who presents for colon screen. Lower endoscopy was offered for further evaluation and management. PAST MEDICAL HISTORY: Please see list. PAST SURGICAL HISTORY: Please see list. MEDICATIONS: Please see list. ALLERGIES: Please see list. SOCIAL HISTORY: No illicit drug use FAMILY HISTORY: No reports of Crohn disease or ulcerative colitis. REVIEW OF ORGAN SYSTEMS: CONSTITUTIONAL: No reports of fevers or chills. PHYSICAL EXAM: VITAL SIGNS: Stable GENERAL: Well-developed pleasant in no acute distress. HEENT: No scleral icterus. Extraocular movements grossly intact. Moist buccal mucosa. NECK: Supple without lymphadenopathy. CHEST: Unlabored respirations. Equal bilateral excursions. CARDIOVASCULAR: Regular rate and rhythm. Distal 2+ pulses. ABDOMEN: Soft, nontender, nondistended. MUSCULOSKELETAL: No clubbing, cyanosis, or edema. ASSESSMENT: 1. Colon screen. PLAN: 1. Recommend proceeding with a lower endoscopy Past Medical History Past Medical History: Coronary Artery Disease (CAD), Cancer, Eye Disorder, GERD/Reflux, Hyperlipidemia, Myocardial Infarction ([place]), Osteoarthritis (OA), Thyroid Disorder Additional Past Medical History / Comment(s): MILD [place] 1995; HX CA PARATHYROID. OCC GERD. USING RX FOR PRE-GLAUCOMA. HAS "BAD NECK", C4-5 Last Myocardial Infarction Date:: 1995 History of Any Multi-Drug Resistant Organisms: None Reported Past Surgical History: Heart Catheterization, Joint Replacement, Orthopedic Surgery Additional Past Surgical History / Comment(s): HEMORROIDECTOMY. HAMMER TOE. THYROIDECTOMY, left hip replaced 09/2015 Past Anesthesia/Blood Transfusion Reactions: No Reported Reaction Smoking Status: Former smoker - Past Family History Mother Family Medical History: No Reported History Medications and Allergies Home Medications Medication Instructions Recorded Confirmed Type Latanoprost Ophth [Xalatan 0.005%] 1 drops BOTH EYES HS 10/01/15 07/16/20 History Levothyroxine Sodium [Synthroid] 150 mcg PO DAILY 10/01/15 07/16/20 History Simvastatin [Zocor] 40 mg PO HS 10/01/15 07/16/20 History Aspirin [Adult Low Dose Aspirin EC] 81 mg PO DAILY 07/16/20 07/16/20 History Multivitamins, Thera [Multivitamin 1 tab PO DAILY 07/16/20 07/16/20 History (formulary)] Allergies Allergy/AdvReac Type Severity Reaction Status Date / Time No Known Allergies Allergy Verified 07/16/20 10:25
[~2020-07-18 08:55] MED LIST: LACTATED RINGERS 1,000 ML IV SCH; LIDOCAINE 1% (10MG/ML) FOR IV START INTRADERMA PRN
[2020-07-18 09:38] VITALS: RESP 16; TEMP 97.4
[2020-07-18] MEDS ORDERED: PROPOFOL 10 MG/ML 20 ML VIAL IV ONE (10:23)
--- NOTE | 2020-07-18 10:56 | P.PCN ---
Date of Procedure: 07/18/20 Description of Procedure: PREOPERATIVE DIAGNOSIS: Colonoscopy screening POSTOPERATIVE DIAGNOSIS: Tubular adenoma hepatic flexure Tubular adenoma cecum OPERATION: Colonoscopy to the ileocecal valve and appendiceal orifice, cecum Colonoscopy with hot snare polypectomy SURGEON: Rosalinda Melchor MD. ANESTHESIA: MAC. INDICATIONS: The patient is an 75-year-old male who presents for colonoscopy screening. Last colonoscopy over 10 years ago. Benefits and risks were described and informed consent was obtained. DESCRIPTION OF PROCEDURE: The patient had undergone Suprep. He had been brought into the operating room and laid in the left lateral decubitus position. After adequate intravenous sedation, the rectum was examined with 2% lidocaine jelly. The prostate was unremarkable. External hemorrhoids were encountered. The rectal tone was within normal limits. No lesions were palpated in the rectal vault. An Olympus colonoscope was advanced until the cecum, ileocecal valve and appendiceal orifice were clearly viewed. The prep was excellent. No large sigmoid diverticulosis was encountered. Multiple colonic polyps were found and removed. No evidence of focal colitis was found. Retroflexion of the scope demonstrated grade 2 internal hemorrhoids without active bleeding or inflammation. The colon was desufflated. The patient had tolerated the procedure well. Withdrawal time was over 6 minutes. FINDINGS: Aronchick preparation quality scale 1 (1-5) Internal hemorrhoids, grade 2 External hemorrhoids, grade 2 No arteriovenous malformations. No large sigmoid diverticulosis Removal of 2 polyps: - Snare polypectomy cecum, 14 mm tubulovillous adenoma polyp. - Snare polypectomy hepatic flexure, 8 mm flat villous adenoma polyp. No focal colitis. RECOMMENDATIONS: Given severity of tubular adenomas, recommend repeat colonoscopy 1 years, 2021 Plan - Discharge Summary Discharge Rx Participant: No New Discharge Prescriptions: Continue Simvastatin [Zocor] 40 mg PO HS Latanoprost Ophth [Xalatan 0.005%] 1 drops BOTH EYES HS Levothyroxine Sodium [Synthroid] 150 mcg PO DAILY Multivitamins, Thera [Multivitamin (formulary)] 1 tab PO DAILY Aspirin [Adult Low Dose Aspirin EC] 81 mg PO DAILY Discharge Medication List Latanoprost Ophth [Xalatan 0.005%] 1 drops BOTH EYES HS 10/01/15 [History] Levothyroxine Sodium [Synthroid] 150 mcg PO DAILY 10/01/15 [History] Simvastatin [Zocor] 40 mg PO HS 10/01/15 [History] Aspirin [Adult Low Dose Aspirin EC] 81 mg PO DAILY 07/16/20 [History] Multivitamins, Thera [Multivitamin (formulary)] 1 tab PO DAILY 07/16/20 [History] Follow up Appointment(s)/Referral(s): Rosalinda Melchor MD [STAFF PHYSICIAN] - As Needed Patient Instructions/Handouts: Colorectal Polyps (DC), Colorectal Polyps (IP), *Surgery [facility] - (Anesthesia) Endoscopy Discharge Instructions Activity/Diet/Wound Care/Special Instructions: Repeat colonoscopy 1 year 2021 Discharge Disposition: HOME SELF-CARE
[2020-07-18 11:07] VITALS: BP 126/75; PULSE 66
== END 2020-07-18 11:44 | disposition home or self-care (01) ==
LOC: ORWHC2ENDO 08:55
PROVIDERS: ATTEND Surgery Plastic and Reconstructive Surgery
DX: Z12.11 Encounter for screening for malignant neoplasm of colon (principal); D12.0 Benign neoplasm of cecum; K63.5 Polyp of colon; I25.10 Atherosclerotic heart disease of native coronary artery without angina pectoris; K21.9 Gastro-esophageal reflux disease without esophagitis; E78.5 Hyperlipidemia, unspecified; I25.2 Old myocardial infarction; M19.90 Unspecified osteoarthritis, unspecified site; Z85.850 Personal history of malignant neoplasm of thyroid; H40.9 Unspecified glaucoma; Z96.642 Presence of left artificial hip joint; Z98.890 Other specified postprocedural states; Z87.891 Personal history of nicotine dependence; Z79.82 Long term (current) use of aspirin; Z79.890 Hormone replacement therapy; Z79.899 Other long term (current) drug therapy
CPT/HCPCS: 88305; 45385; J2704

== ENCOUNTER → 2021-03-06 | Outpatient (CLI) | payer MEDICARE, OTHER ==
[2021-03-06 11:58] LABS: African American GFR (CKD) >90 (>60 ml/min/1.73 sqM); Blood Urea Nitrogen 13 mg/dL (9-20); Non-African American GFR(CKD) 79 (>60 ml/min/1.73 sqM)
--- NOTE | 2021-03-06 13:32 | CT ---
EXAMINATION TYPE: CT soft tissue neck w con DATE OF EXAM: 03/06/2021 COMPARISON: None2 HISTORY: Lt Parotid Lesion CT DLP: 479.60 mGycm CONTRAST: Patient injected with 100 mL of Isovue 300. TECHNIQUE: Axial images at 3 mm thick sections. Reconstructed images in the coronal plane and sagitt al plane are reviewed. FINDINGS: Limited CT sections are obtained the lung apices. The lung apices appear clear. CT neck: The torus tubarius and fossa of Rosenmuller are normal. System Safety Engineer spaces are normal. Para nasal sinuses and mastoid air cells are clear. There is some fullness of the left parotid gland compared to the right. The right parotid gland appea rs atrophic which may account for the prominence on the left. No suspicious underlying mass is identi fied. A BB mark the left parotid gland. Submandibular glands, are normal. Dental amalgam scatter artifact is present. Parapharyngeal spaces a re normal. No suspicious adenopathy is evident. The hypopharynx appears within normal limits. Vocal cord level is closed during the exam. Thyroid as visualized is normal. While degenerative disc changes to the cervical spine IMPRESSIONS: 1. There appears to be normal left parotid gland present. The right parotid gland appears atrophic wh ich may give the appearance of the prominent left parotid gland.
== END | disposition home or self-care (01) ==
LOC: RADCTMAIN 10:57
PROVIDERS: ATTEND Otolaryngology
DX: K11.0 Atrophy of salivary gland (principal)
CPT/HCPCS: 82565; 84520; 70491; 36415; Q9967

== ENCOUNTER 2021-08-14 09:19 | Day surgery (SDC) | payer MEDICARE, OTHER ==
[2021-08-12 15:56] VITALS: BMI 30.2
--- NOTE | 2021-08-14 08:15 | P.GSHP ---
History of Present Illness H&P Date: 08/14/21 CHIEF COMPLAINT: Colon screen HISTORY OF PRESENT ILLNESS: The patient is a 76-year-old male who presents for colon screen. Lower endoscopy was offered for further evaluation and management. PAST MEDICAL HISTORY: Please see list. PAST SURGICAL HISTORY: Please see list. MEDICATIONS: Please see list. ALLERGIES: Please see list. SOCIAL HISTORY: No illicit drug use FAMILY HISTORY: No reports of Crohn disease or ulcerative colitis. REVIEW OF ORGAN SYSTEMS: CONSTITUTIONAL: No reports of fevers or chills. PHYSICAL EXAM: VITAL SIGNS: Stable GENERAL: Well-developed pleasant in no acute distress. HEENT: No scleral icterus. Extraocular movements grossly intact. Moist buccal mucosa. NECK: Supple without lymphadenopathy. CHEST: Unlabored respirations. Equal bilateral excursions. CARDIOVASCULAR: Regular rate and rhythm. Distal 2+ pulses. ABDOMEN: Soft, nontender, nondistended. MUSCULOSKELETAL: No clubbing, cyanosis, or edema. ASSESSMENT: 1. Colon screen. PLAN: 1. Recommend proceeding with a lower endoscopy Past Medical History Past Medical History: Coronary Artery Disease (CAD), Cancer, Eye Disorder, GERD/Reflux, Hyperlipidemia, Hypertension, Myocardial Infarction ([place]), Thyroid Disorder Additional Past Medical History / Comment(s): HX CANCER PARATHYROID. USING RX FOR PRE-GLAUCOMA. 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 HAMMER TOE rt foot. THYROIDECTOMY, left hip replaced, mei cataracts Past Anesthesia/Blood Transfusion Reactions: No Reported Reaction Smoking Status: Former smoker - Past Family History Mother Family Medical History: No Reported History Daughter(s) Family Medical History: Cancer Medications and Allergies Home Medications Medication Instructions Recorded Confirmed Type RX: Latanoprost Ophth [Xalatan 1 drops BOTH EYES HS 10/01/15 08/12/21 History 0.005%] RX: Levothyroxine Sodium 150 mcg PO DAILY 10/01/15 08/12/21 History [Synthroid] RX: Simvastatin [Zocor] 40 mg PO HS 10/01/15 08/12/21 History RX: Aspirin [Adult Low Dose 81 mg PO DAILY 07/16/20 08/12/21 History Aspirin EC] RX: Multivitamins, Thera 1 tab PO DAILY 07/16/20 08/12/21 History [Multivitamin (formulary)] Losartan [Cozaar] 25 mg PO DAILY 08/12/21 08/12/21 History Allergies Allergy/AdvReac Type Severity Reaction Status Date / Time No Known Allergies Allergy Verified 08/12/21 15:45
[~2021-08-14 09:19] MED LIST changes: -LACTATED RINGERS 1,000 ML IV SCH
[2021-08-14 10:05] VITALS: TEMP 97.6
[2021-08-14] MEDS: LACTATED RINGERS 1,000 ML IV SCH ×2 (10:09→10:40)
[2021-08-14] MEDS ORDERED: PROPOFOL 10 MG/ML 20 ML VIAL IV ONE (10:42)
[2021-08-14] MEDS ORDERED: LIDOCAINE 1% INJ 10MG/ML (20 ML MDV) ONE (10:42)
[2021-08-14 11:29] VITALS: BP 158/77; PULSE 58; RESP 16
--- NOTE | 2021-08-14 11:40 | P.PCN ---
Date of Procedure: 08/14/21 Description of Procedure: PREOPERATIVE DIAGNOSIS: Personal history of colon polyps Colonoscopy screening POSTOPERATIVE DIAGNOSIS: Tubular adenoma cecum Tubular adenoma ascending colon Tubular adenoma hepatic flexure Tubular adenoma transverse colon Sigmoid diverticulosis OPERATION: Colonoscopy to the ileocecal valve and appendiceal orifice, cecum Colonoscopy with hot snare polypectomy SURGEON: Rosalinda Melchor MD. ANESTHESIA: MAC. INDICATIONS: The patient is an 76-year-old male who presents personal history of high-risk colon polyps. Last colonoscopy less than 5 years. Benefits and risks were described and informed consent was obtained. DESCRIPTION OF PROCEDURE: The patient had undergone Sutab prep. The patient had been brought into the operating room and laid in the left lateral decubitus position. After adequate intravenous sedation, the rectum was examined with 2% lidocaine jelly. The prostate fossa was unremarkable. External hemorrhoids were encountered. The rectal tone was within normal limits. No lesions were palpated in the rectal vault. An Olympus colonoscope was advanced until the cecum, ileocecal valve and appendiceal orifice were clearly viewed. The prep was excellent. Sigmoid diverticulosis was encountered. Colonic polyps were found and removed. No evidence of focal colitis was found. Retroflexion of the scope demonstrated grade 2 internal hemorrhoids without active bleeding or inflammation. The colon was desufflated. The patient had tolerated the procedure well. Withdrawal time was over 6 minutes. FINDINGS: Aronchick preparation quality scale 1 (1-5) Internal hemorrhoids, grade 2 External hemorrhoids, grade 4. No arteriovenous malformations. Sigmoid diverticulosis Removal of 5 polyps: - Snare polypectomy cecum, 5 mm tubulovillous adenoma polyp. - Snare polypectomy ascending colon, 8 mm flat villous adenoma polyp. - Snare polypectomy hepatic flexure 2, 8 and 10 mm flat villous adenoma polyp. - Snare polypectomy transverse colon, 5 mm tubulovillous adenoma polyp. No focal colitis. RECOMMENDATIONS: He has history of multiple high-risk colon polyps and recommend repeat colonoscopy in 2 years, 2023 Plan - Discharge Summary New Discharge Prescriptions: Continue Simvastatin [Zocor] 40 mg PO HS Latanoprost Ophth [Xalatan 0.005%] 1 drops BOTH EYES HS Levothyroxine Sodium [Synthroid] 150 mcg PO DAILY Multivitamins, Thera [Multivitamin (formulary)] 1 tab PO DAILY Aspirin [Adult Low Dose Aspirin EC] 81 mg PO DAILY Losartan [Cozaar] 25 mg PO DAILY Discharge Medication List Latanoprost Ophth [Xalatan 0.005%] 1 drops BOTH EYES HS 10/01/15 [History] Levothyroxine Sodium [Synthroid] 150 mcg PO DAILY 10/01/15 [History] Simvastatin [Zocor] 40 mg PO HS 10/01/15 [History] Aspirin [Adult Low Dose Aspirin EC] 81 mg PO DAILY 07/16/20 [History] Multivitamins, Thera [Multivitamin (formulary)] 1 tab PO DAILY 07/16/20 [History] Losartan [Cozaar] 25 mg PO DAILY 08/12/21 [History] Follow up Appointment(s)/Referral(s): Rosalinda Melchor MD [STAFF PHYSICIAN] - As Needed Patient Instructions/Handouts: *Surgery [facility] - (Anesthesia) Endoscopy Discharge Instructions, Diverticulosis (ED), Colorectal Polyps (GEN), Diverticulosis Diet (GEN) Activity/Diet/Wound Care/Special Instructions: Repeat colonoscopy in 2 years, 2023
== END 2021-08-14 12:02 | disposition home or self-care (01) ==
LOC: ORWHC2ENDO 09:19
PROVIDERS: ATTEND Surgery Plastic and Reconstructive Surgery
DX: Z12.11 Encounter for screening for malignant neoplasm of colon (principal); D12.2 Benign neoplasm of ascending colon; D12.3 Benign neoplasm of transverse colon; K57.30 Diverticulosis of large intestine without perforation or abscess without bleeding; K21.9 Gastro-esophageal reflux disease without esophagitis; Z86.010 Personal history of colon polyps; I25.10 Atherosclerotic heart disease of native coronary artery without angina pectoris; E78.5 Hyperlipidemia, unspecified; I10 Essential (primary) hypertension; I25.2 Old myocardial infarction; E07.9 Disorder of thyroid, unspecified; Z85.89 Personal history of malignant neoplasm of other organs and systems; H40.9 Unspecified glaucoma; Z96.642 Presence of left artificial hip joint; Z98.42 Cataract extraction status, left eye; Z98.41 Cataract extraction status, right eye; Z98.890 Other specified postprocedural states; Z87.891 Personal history of nicotine dependence; Z80.9 Family history of malignant neoplasm, unspecified; Z79.82 Long term (current) use of aspirin; Z79.890 Hormone replacement therapy; Z79.899 Other long term (current) drug therapy
CPT/HCPCS: 88305; 45385; J2001; J2704

== ENCOUNTER → 2022-05-06 | Outpatient (CLI) | payer MEDICARE, OTHER ==
--- NOTE | 2022-05-06 17:08 | US ---
EXAMINATION TYPE: US carotid duplex BILAT DATE OF EXAM: 05/06/2022 COMPARISON: NONE CLINICAL HISTORY: I65.29 OCCLUSION AND STENOSIS OF UNSPECIFIED CAROTID. TECHNIQUE: Carotid duplex ultrasound examination. Indirect Doppler criteria was utilized. FINDINGS: EXAM MEASUREMENTS: RIGHT: Peak Systolic Velocity (PSV) cm/sec ----- Right CCA: 103. ----- Right ICA: 123. ----- Right ECA: 93.5 ICA/CCA ratio: 1.2 RIGHT: End Diastole cm/sec ----- Right CCA: 15.6 ----- Right ICA: 20.1 ----- Right ECA: 0.0 LEFT: Peak Systolic Velocity (PSV) cm/sec ----- Left CCA: 98.9 ----- Left ICA: 81.3 ----- Left ECA: 78.7 ICA/CCA ratio: 0.8 LEFT: End Diastole cm/sec ----- Left CCA: 10.3 ----- Left ICA: 17.2 ----- Left ECA: 10.2 VERTEBRALS (direction of flow): Right Vertebral: Antegrade Left Vertebral: Antegrade Rhythm: Normal DIRECTOR REHABILITATION PROGRAM NOTES: Mild atherosclerotic changes with no significant velocity increases. IMPRESSION: 1. Mild atheromatous plaquing without significant flow-limiting stenosis. Criteria for Assigning % of Stenosis / Diameter reduction (Estimation based on the indirect measurements of the internal carotid artery velocities (ICA PSV). 1. Normal (no stenosis)=ICA PSV < 125 cm/s: ratio < 2.0: ICA EDV<40 cm/s. 2. Less than 50% stenosis=ICA PSV < 125 cm/s: ratio < 2.0: ICA EDV<40 cm/s. 3. 50 to 69% stenosis=ICA PSV of 125 to 230 cm/s: ration 2.0 ? 4.0: ICA EDV 40-100 cm/s. 4. Greater than 70% stenosis to near occlusion= ICA PSV > 230 cm/s: ratio > 4.0: ICA EDV > 100 cm/s. 5. Near occlusion= ICA PSV velocities may be low or undetectable: variable ratio and ICA EDV. 6. Total occlusion=unable to detect flow.
== END | disposition home or self-care (01) ==
LOC: RADUSWWP 10:49
PROVIDERS: ATTEND Family Medicine
DX: I65.23 Occlusion and stenosis of bilateral carotid arteries (principal)
CPT/HCPCS: 93880

== ENCOUNTER → 2023-05-27 | Outpatient (CLI) | payer MEDICARE, OTHER ==
--- NOTE | 2023-05-27 11:19 | US ---
EXAMINATION TYPE: US carotid duplex BILAT DATE OF EXAM: 05/27/2023 COMPARISON: US 2021 CLINICAL INDICATION: Male, 78 years old with history of I65.29 OCCLUSION AND STENOSIS OF UNSPECIFIED CAROT; Prior smoker. TECHNIQUE: Carotid duplex ultrasound examination. Indirect Doppler criteria was utilized. FINDINGS: EXAM MEASUREMENTS: RIGHT: Peak Systolic Velocity (PSV) cm/sec ----- Right CCA: 100.4 ----- Right ICA: 89.7 ----- Right ECA: 87.5 ICA/CCA ratio: 0.9 RIGHT: End Diastole cm/sec ----- Right CCA: 16.3 ----- Right ICA: 9.5 ----- Right ECA: 0.0 LEFT: Peak Systolic Velocity (PSV) cm/sec ----- Left CCA: 121.5 ----- Left ICA: 91.0 ----- Left ECA: 89.7 ICA/CCA ratio: 0.7 LEFT: End Diastole cm/sec ----- Left CCA: 12.5 ----- Left ICA: 14.0 ----- Left ECA: 0.0 VERTEBRALS (direction of flow): Right Vertebral: Antegrade Left Vertebral: Antegrade Rhythm: Normal TIE FASTENER NOTES: No elevated velocities at this time. Plaque seen within bilateral bulbs and left p roximal ICA. IMPRESSION: No evidence for hemodynamically significant stenosis Criteria for Assigning % of Stenosis / Diameter reduction (Estimation based on the indirect measurements of the internal carotid artery velocities (ICA PSV). 1. Normal (no stenosis)=ICA PSV < 125 cm/s: ratio < 2.0: ICA EDV<40 cm/s. 2. Less than 50% stenosis=ICA PSV < 125 cm/s: ratio < 2.0: ICA EDV<40 cm/s. 3. 50 to 69% stenosis=ICA PSV of 125 to 230 cm/s: ration 2.0 ? 4.0: ICA EDV 40-100 cm/s. 4. Greater than 70% stenosis to near occlusion= ICA PSV > 230 cm/s: ratio > 4.0: ICA EDV > 100 cm/s. 5. Near occlusion= ICA PSV velocities may be low or undetectable: variable ratio and ICA EDV. 6. Total occlusion=unable to detect flow.
== END | disposition home or self-care (01) ==
LOC: RADUSWWP 10:45
PROVIDERS: ATTEND Family Medicine
DX: I65.29 Occlusion and stenosis of unspecified carotid artery (principal)
CPT/HCPCS: 93880

== ENCOUNTER 2023-09-06 12:00 | Emergency (ER) | payer MEDICARE, OTHER ==
--- NOTE | 2023-09-06 12:16 | ED ---
General Adult HPI - General Chief complaint: Back Pain/Injury Stated complaint: Back Pain Time Seen by Provider: 09/06/23 12:05 Source: patient, RN notes reviewed, old records reviewed Mode of arrival: ambulatory Limitations: no limitations - History of Present Illness Initial comments: 78-year-old male history of hypertension presenting for evaluation of mid upper back pain. Patient states he woke this morning at approximately 6 AM with this pain. He denies specific injury, denies fall, denies any initiating factor. He does report some mild dyspnea. He also states the pain is worse with both movement and with deep inspiration. No fever. No anterior chest pain. He does report some abdominal discomfort. - Related Data Home Medications Medication Instructions Recorded Confirmed Latanoprost Ophth [Xalatan 0.005%] 1 drops BOTH EYES HS 10/01/15 08/14/21 Levothyroxine Sodium [Synthroid] 150 mcg PO DAILY 10/01/15 08/14/21 Simvastatin [Zocor] 40 mg PO HS 10/01/15 08/14/21 Aspirin [Adult Low Dose Aspirin EC] 81 mg PO DAILY 07/16/20 08/14/21 Multivitamins, Thera [Multivitamin 1 tab PO DAILY 07/16/20 08/14/21 (formulary)] Losartan [Cozaar] 25 mg PO DAILY 08/12/21 08/14/21 Previous Rx's Medication Instructions Recorded HYDROcodone/APAP 5-325MG [[place] 1 tab PO Q6HR PRN #12 tab 09/06/23 5-325] Allergies Allergy/AdvReac Type Severity Reaction Status Date / Time No Known Allergies Allergy Verified 09/06/23 12:04 Review of Systems ROS Statement: Those systems with pertinent positive or pertinent negative responses have been documented in the HPI. ROS Other: All systems not noted in ROS Statement are negative. Past Medical History Past Medical History: Coronary Artery Disease (CAD), Cancer, Eye Disorder, GERD/Reflux, Hyperlipidemia, Hypertension, Myocardial Infarction ([place]), Thyroid Disorder Additional Past Medical History / Comment(s): HX CANCER PARATHYROID. USING RX FOR PRE-GLAUCOMA. 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 HAMMER TOE rt foot. THYROIDECTOMY, left hip replaced, mei cataracts Past Anesthesia/Blood Transfusion Reactions: No Reported Reaction Past Psychological History: No Psychological Hx Reported Smoking Status: Former smoker Past Alcohol Use History: None Reported Past Drug Use History: None Reported - Past Family History Mother Family Medical History: No Reported History Daughter(s) Family Medical History: Cancer General Exam Limitations: no limitations General appearance: alert, in no apparent distress Head exam: Present: atraumatic, normocephalic Eye exam: Present: normal appearance, PERRL ENT exam: Present: normal exam Neck exam: Present: normal inspection. Absent: tenderness, meningismus Respiratory exam: Present: normal lung sounds bilaterally. Absent: respiratory distress, wheezes Cardiovascular Exam: Present: regular rate, normal rhythm GI/Abdominal exam: Present: distended, tenderness Extremities exam: Present: normal inspection, normal capillary refill, other (Symmetric 2+ posterior tibial pulses). Absent: pedal edema, calf tenderness Back exam: Present: paraspinal tenderness (Thoracic), vertebral tenderness (Mid thoracic ) Neurological exam: Present: alert, oriented X3, CN II-XII intact. Absent: motor sensory deficit Skin exam: Present: warm, dry, intact. Absent: cyanosis, diaphoretic Course Vital Signs 09/06/23 12:02 Temperature 98.6 F Pulse Rate 73 Respiratory 20 Rate Blood Pressure 206/94 O2 Sat by Pulse 99 Oximetry Medical Decision Making - Medical Decision Making Was pt. sent in by a medical professional or institution (, PA, EQUIPMENT SCHEDULER, urgent care, hospital, or skilled nursing...) When possible be specific @ -No Did you speak to anyone other than the patient for history (EMS, parent, family, police, friend...)? What history was obtained from this source @ -No Did you review nursing and triage notes (agree or disagree)? Why? @ -I reviewed and agree with nursing and triage notes Were old charts reviewed (outside hosp., previous admission, EMS record, old EKG, old radiological studies, urgent care reports/EKG's, skilled nursing records)? Report findings @ -No old charts were reviewed Differential Diagnosis (chest pain, altered mental status, abdominal pain women, abdominal pain men, vaginal bleeding, weakness, fever, dyspnea, syncope, headache, dizziness, GI bleed, back pain, seizure, CVA, palpatations, mental health, musculoskeletal)? @ -Not applicable EKG interpreted by me (3pts min.). @Sinus rhythm rate of 64, [place] interval 189, QRS duration 89, QTc [address] segment elevation. X-rays interpreted by me (1pt min.). @ -Rest x-ray negative for acute cardiopulmonary findings CT interpreted by me (1pt min.). @ -CT angiography of the chest negative for pulmonary embolism, CT of the abdomen pelvis showing left renal mass measuring 4.8 cm. U/S interpreted by me (1pt. min.). @ -None done What testing was considered but not performed or refused? (CT, X-rays, U/S, labs)? Why? @ -None What meds were considered but not given or refused? Why? @ -None Did you discuss the management of the patient with other professionals (professionals i.e. , PA, EQUIPMENT SCHEDULER, lab, RT, psych nurse, psychosocial rehabilitation counselor, director hair, teacher, drug abuse resistance education officer, caser up)? Give summary @ -No Was smoking cessation discussed for >3mins.? @ -No Was critical care preformed (if so, how long)? @ -No Were there social determinants of health that impacted care today? How? (Homelessness, low income, unemployed, alcoholism, drug addiction, transportation, low edu. Level, literacy, decrease access to med. care, snf, rehab)? @ -No Was there de-escalation of care discussed even if they declined (Discuss DNR or withdrawal of care, Hospice)? DNR status @ -No What co-morbidities impacted this encounter? (DM, HTN, Smoking, COPD, CAD, Cancer, CVA, ARF, Chemo, Hep., AIDS, mental health diagnosis, sleep apnea, morbid obesity)? @ -None Was patient admitted / discharged? Hospital course, mention meds given and route , prescriptions, significant lab abnormalities, going to OR and other pertinent info. @ -78-year-old male with atraumatic mid back pain. Pain is worse with movement he does have point tenderness in the spine. I did perform workup including EKG, chest x-ray, laboratory testing, CT imaging of the both the chest and abdomen. Workup does not reveal any acute bony abnormalities, normal aorta, no acute cardiopulmonary findings, patient has a left renal mass at 4.8 cm. This will require further workup. I did offer observation for both pain control and urology consultation. Patient declines. Prefers discharge at this time. Undiagnosed new problem with uncertain prognosis? @ -No Drug Therapy requiring intensive monitoring for toxicity (Heparin, Nitro, Insulin, Cardizem)? @ -No Were any procedures done? @ -No Diagnosis/symptom? @ -Mid back pain, renal mass Acute, or Chronic, or Acute on Chronic? @ -Acute Uncomplicated (without systemic symptoms) or Complicated (systemic symptoms)? @Complicated Side effects of treatment? @ -No Exacerbation, Progression, or Severe Exacerbation? @ -No Poses a threat to life or bodily function? How? (Chest pain, [place], [place], pneumonia, PE, COPD, DKA, ARF, appy, cholecystitis, CVA, Diverticulitis, Homicidal, Suicidal, threat to staff... and all critical care pts) @ -Yes, renal mass - Lab Data Result diagrams: 09/06/23 12:23 09/06/23 12:23 Lab Results 09/06/23 09/06/23 09/06/23 Range/Units 12:22 12:23 12:23 WBC 6.0 (3.8-10.6) k/uL RBC 4.39 (4.30-5.90) m/uL Hgb 15.3 (13.0-17.5) gm/dL Hct 45.2 (39.0-53.0) % MCV 103.0 H (80.0-100.0) fL MCH 35.0 (25.0-35.0) pg MCHC 33.9 (31.0-37.0) g/dL RDW 12.9 (11.5-15.5) % Plt Count 174 (150-450) k/uL MPV 8.1 Neutrophils % 60 % Lymphocytes % 28 % Monocytes % 6 % Eosinophils % 4 % Basophils % 1 % Neutrophils # 3.6 (1.3-7.7) k/uL Lymphocytes # 1.7 (1.0-4.8) k/uL Monocytes # 0.3 (0-1.0) k/uL Eosinophils # 0.2 (0-0.7) k/uL Basophils # 0.0 (0-0.2) k/uL Macrocytosis Slight PT 10.9 (10.0-12.5) sec INR 1.0 (<1.2) APTT 24.6 (22.0-30.0) sec Sodium (137-145) mmol/L Potassium (3.5-5.1) mmol/L Chloride (98-107) mmol/L Carbon Dioxide (22-30) mmol/L Anion Gap mmol/L BUN (9-20) mg/dL Creatinine (0.66-1.25) mg/dL Est GFR (CKD-EPI)AfAm (>60 ml/min/1.73 sqM) Est GFR (CKD-EPI)NonAf (>60 ml/min/1.73 sqM) Glucose (74-99) mg/dL Calcium (8.4-10.2) mg/dL Magnesium (1.6-2.3) mg/dL Total Bilirubin (0.2-1.3) mg/dL AST (17-59) U/L ALT (4-49) U/L Alkaline Phosphatase (38-126) U/L Troponin I <0.012 (0.000-0.034) ng/mL NT-Pro-B Natriuret Pep pg/mL Total Protein (6.3-8.2) g/dL Albumin (3.5-5.0) g/dL Lipase (23-300) U/L 09/06/23 Range/Units 12:23 WBC (3.8-10.6) k/uL RBC (4.30-5.90) m/uL Hgb (13.0-17.5) gm/dL Hct (39.0-53.0) % MCV (80.0-100.0) fL MCH (25.0-35.0) pg MCHC (31.0-37.0) g/dL RDW (11.5-15.5) % Plt Count (150-450) k/uL MPV Neutrophils % % Lymphocytes % % Monocytes % % Eosinophils % % Basophils % % Neutrophils # (1.3-7.7) k/uL Lymphocytes # (1.0-4.8) k/uL Monocytes # (0-1.0) k/uL Eosinophils # (0-0.7) k/uL Basophils # (0-0.2) k/uL Macrocytosis PT (10.0-12.5) sec INR (<1.2) APTT (22.0-30.0) sec Sodium 143 (137-145) mmol/L Potassium 4.4 (3.5-5.1) mmol/L Chloride 108 H (98-107) mmol/L Carbon Dioxide 23 (22-30) mmol/L Anion Gap 12 mmol/L BUN 12 (9-20) mg/dL Creatinine 0.91 (0.66-1.25) mg/dL Est GFR (CKD-EPI)AfAm >90 (>60 ml/min/1.73 sqM) Est GFR (CKD-EPI)NonAf 79 (>60 ml/min/1.73 sqM) Glucose 120 H (74-99) mg/dL Calcium 9.2 (8.4-10.2) mg/dL Magnesium 1.8 (1.6-2.3) mg/dL Total Bilirubin 0.8 (0.2-1.3) mg/dL AST 114 H (17-59) U/L ALT 102 H (4-49) U/L Alkaline Phosphatase 55 (38-126) U/L Troponin I (0.000-0.034) ng/mL NT-Pro-B Natriuret Pep 37 pg/mL Total Protein 7.8 (6.3-8.2) g/dL Albumin 4.3 (3.5-5.0) g/dL Lipase 188 (23-300) U/L Disposition Clinical Impression: Back pain, Renal mass Disposition: HOME SELF-CARE Condition: Fair Instructions (If sedation given, give patient instructions): Back Pain (ED) Additional Instructions: The CT of your abdomen did reveal a mass on the left kidney. This will require further workup. Please follow closely with your primary care provider and with urology. Prescriptions: HYDROcodone/APAP 5-325MG [[place] 5-325] 1 tab PO Q6HR PRN #12 tab PRN Reason: Pain Is patient prescribed a controlled substance at d/c from ED?: No Referrals: Jeffrey Barrios MD [Primary Care Provider] - 1-2 days Mike De Leon MD [STAFF PHYSICIAN] - 1-2 days Time of Disposition: 14:39
[2023-09-06 12:27] VITALS: TEMP 98.6
[2023-09-06] MEDS: MORPHINE SULFATE 2 MG/ML SYRINGE IVP STA (12:29)
[2023-09-06 12:39] LABS: Basophils % (A) 1 %; Eosinophils # (A) 0.2 k/uL (0-0.7); Eosinophils % (A) 4 %; HCT 45.2 % (39.0-53.0); HGB 15.3 gm/dL (13.0-17.5); Lymphocytes # (A) 1.7 k/uL (1.0-4.8); Lymphocytes % (A) 28 %; MCHC 33.9 g/dL (31.0-37.0); Macrocytosis Slight; Mean Platelet Volume 8.1; Monocytes # (A) 0.3 k/uL (0-1.0); Monocytes % (A) 6 %; Neutrophils # (A) 3.6 k/uL (1.3-7.7); Neutrophils % (A) 60 %; Platelet Count 174 k/uL (150-450); RBC 4.39 m/uL (4.30-5.90); RDW 12.9 % (11.5-15.5)
--- NOTE | 2023-09-06 12:45 | XR ---
EXAMINATION TYPE: XR chest 1V portable DATE OF EXAM: 09/06/2023 COMPARISON: 04/22/2019 INDICATION: Chest pain TECHNIQUE: Single frontal view of the chest is obtained. FINDINGS: The heart size is normal. The pulmonary vasculature is normal. The lungs are clear. IMPRESSION: 1. No acute pulmonary process.
[2023-09-06 12:48] LABS: ALT 102 U/L (4-49); AST 114 U/L (17-59); African American GFR (CKD) >90 (>60 ml/min/1.73 sqM); Albumin 4.3 g/dL (3.5-5.0); Alkaline Phosphatase 55 U/L (38-126); Anion Gap 12 mmol/L; Blood Urea Nitrogen 12 mg/dL (9-20); Calcium 9.2 mg/dL (8.4-10.2); Carbon Dioxide 23 mmol/L (22-30); Chloride 108 mmol/L (98-107); Glucose 120 mg/dL (74-99); Lipase 188 U/L (23-300); Magnesium 1.8 mg/dL (1.6-2.3); Non-African American GFR(CKD) 79 (>60 ml/min/1.73 sqM); Partial Thromboplastin Time 24.6 sec (22.0-30.0); Potassium 4.4 mmol/L (3.5-5.1); Prothrombin Time 10.9 sec (10.0-12.5); Sodium 143 mmol/L (137-145); Total Bilirubin 0.8 mg/dL (0.2-1.3); Total Protein 7.8 g/dL (6.3-8.2)
[2023-09-06 12:57] LABS: NT-Pro-B-Type Natriuretic Pept 37 pg/mL
--- NOTE | 2023-09-06 13:58 | CT ---
EXAMINATION TYPE: CT abdomen pelvis w con DATE OF EXAM: 09/06/2023 COMPARISON: None INDICATION: RIGHT SIDED BACK PAIN DLP: 1731.1 mGycm, Automated exposure control for dose reduction was used. CONTRAST: 100 mL of Isovue 370. Study performed without Oral Contrast TECHNIQUE: Axial images were obtained from above the diaphragm to the pubic rami in the axial plane a t 5 mm thick sections. Reconstructed images are reviewed on the computer in the coronal plane. FINDINGS: Limited CT sections are obtained the lung bases. The lung bases are clear. There is a small hiatal hernia present CT ABDOMEN: Liver: Moderate fatty infiltration of liver. Spleen: Normal Pancreas: Normal Adrenal glands: The adrenal glands are normal. Gallbladder: Normal Kidneys: The mid right left kidney there is a 4.8 cm slightly hypodense mass with some more central l ower density. Additional workup is recommended.. No hydronephrosis is present. No cysts are present . Nonobstructing calcifications appear to be present on the mid and lower poles of the kidney. Delaye d images were obtained through the kidneys, the mass is somewhat more hypodense in relation to the co rtex on the delayed images. Aorta: Vascular calcification is within the aorta. Minimal fusiform prominence of the mid abdominal aorta is present Inferior vena cava: Normal. CT PELVIS: Left hip prosthesis causes beam hardening artifact some limitation of the lower pelvis. Loops of bowel within the abdomen and pelvis are normal. This study is without oral contrast limi ting bowel evaluation. Appendix: Normal as visualized. Urinary bladder: Normal as visualized. Genitourinary structures: Prostate appears normal Osseous structures: Lipoma of the anterior quadriceps may be present on the right. Osseous structures appear intact. Left hip prosthesis is present. Degenerative changes throughout the right hip. IMPRESSION: 1. 4.8 cm mid left renal mass. Workup for neoplasm is recommended. 2. Right nonobstructing renal stones. 3. Moderate fatty infiltration of the liver.
--- NOTE | 2023-09-06 14:02 | CT ---
CTA CHEST EXAMINATION TYPE: CT angio chest DATE OF EXAM: 09/06/2023 INDICATION: RIGHT SIDED BACK PAIN CT DLP: 492.1 mGycm, Automated exposure control for dose reduction was used. CONTRAST: Patient injected with 100 mL of Isovue 370. COMPARISON: None TECHNIQUE: CT of the chest is performed on a spiral scan at 2 mm thick sections. Study is performed with intravenous contrast timed for evaluation for pulmonary embolism. This will limit additional po rtions of the evaluation. 3-D MIP images reconstructed by the technologist are reviewed on the compu ter in the coronal and sagittal planes. FINDINGS: No persistent filling defects are evident to suggest an acute pulmonary embolism. No mediastinal or hilar adenopathy enlarged by CT criteria is evident. The ascending aorta diameter at the level of the main pulmonary artery is 3.1 cm. The main pulmonary artery diameter at the bifurcation is 2.5 cm. Some mild pneumonitis changes in the right anterolateral lung, series 406 image 73. Mild streak atele ctasis may be in the right lower lobe. Minimal streak atelectasis is within the left lower lobe. Limited CT sections were through the upper abdomen. Appears to be moderate fatty infiltration within the liver. Moderate size hiatal hernia is present. IMPRESSION: 1. No acute pulmonary embolism. 2. Minimal pneumonitis change anterior lateral right lung. Mild streak atelectasis is likely at the l gifty bases .
[2023-09-06] MEDS: KETOROLAC 15 MG/ML 1 ML VIAL IVP STA (14:13)
[2023-09-06] MEDS: MORPHINE SULFATE 4 MG/ML SYRINGE IVP STA (14:15)
[2023-09-06] MEDS: ACET/COD 300 MG/30 MG STARTER PACK 6 TAB BTL PO STA (15:00)
[2023-09-06 15:26] VITALS: BP 173/86; PULSE 60; RESP 16
== END 2023-09-06 15:17 | disposition home or self-care (01) ==
LOC: EC 12:00
DX: M54.6 Pain in thoracic spine (principal); N28.89 Other specified disorders of kidney and ureter; Z87.891 Personal history of nicotine dependence
CPT/HCPCS: 36415; 93005; 83880; 80053; 83690; 83735; 84484; 85025; 85610; 85730; 71045; 71275; 74177; 99284; 96374; 96375; 96376; J2270 ×2; J1885; Q9967

== ENCOUNTER 2023-09-22 09:29 | Day surgery (SDC) | payer MEDICARE, OTHER ==
[2023-09-21 09:07] VITALS: BMI 30.4
[~2023-09-22 09:29] MED LIST changes: +LACTATED RINGERS 1,000 ML IV SCH; +MIDAZOLAM 2 MG/2 ML VIAL IV PRN
--- NOTE | 2023-09-22 09:30 | P.HPIHPCON ---
History of Present Illness H&P Date: 09/22/23 Chief Complaint: Right renal stones This is an 78-year-old male with a history of a 1.4 cm right-sided lower pole stone, and a 6 mm right-sided upper pole stone, he is symptomatic from his right-sided renal stone. Of note he also has history of left-sided renal mass. Discussed getting given his symptoms from the right-sided renal stones and the potential need for nephrectomy on the left side I recommend addressing the stones initially followed by the renal mass. Discussed with him option of a right-sided ureteroscopy with holmium laser. Aware of the risk which includes but not limited to bleeding, infection, injury to the ureter. Risk of anesthesia was also discussed. He understood all the risk and agreed to proceed Consent for Procedure: I have explained the operation/procedure to the patient, including the risks, benefits, side effects, alternative therapies (including not receiving the proposed treatment or service), the likelihood of the patient achieving his/her goals, and potential recuperation problems for the procedure/sedation/analgesia, as well as any blood products, if indicated. I also explained to the patient the risks, benefits and side effects of the alternatives, as well as the risks related to not receiving the proposed procedure, care, treatment, or services. Past Medical History Past Medical History: Coronary Artery Disease (CAD), Cancer, Eye Disorder, GERD/Reflux, Hyperlipidemia, Hypertension, Myocardial Infarction ([place]), Thyroid Disorder Additional Past Medical History / Comment(s): HX CANCER PARATHYROID. PRE-GLAUCOMA. 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 Last Myocardial Infarction Date:: 1998 History of Any Multi-Drug Resistant Organisms: None Reported Past Surgical History: Heart Catheterization, Joint Replacement, Orthopedic Surgery Additional Past Surgical History / Comment(s): HEMORRHOIDECTOMY. HAMMER TOE rt foot. THYROIDECTOMY, left hip replaced, mei cataracts Past Anesthesia/Blood Transfusion Reactions: No Reported Reaction Past Psychological History: No Psychological Hx Reported Smoking Status: Former smoker Past Alcohol Use History: None Reported Additional Past Alcohol Use History / Comment(s): SMOKED 15 YEARS, 1PPD, QUIT 1978. DRINKS 3 PER DAY AVG, Past Drug Use History: None Reported - Past Family History Mother Family Medical History: No Reported History Daughter(s) Family Medical History: Cancer Medications and Allergies Home Medications Medication Instructions Recorded Confirmed Type Levothyroxine Sodium [Synthroid] 150 mcg PO DAILY 10/01/15 09/21/23 History Simvastatin [Zocor] 40 mg PO HS 10/01/15 09/21/23 History Aspirin [Adult Low Dose Aspirin EC] 81 mg PO HS 07/16/20 09/21/23 History Losartan [Cozaar] 25 mg PO DAILY 08/12/21 09/21/23 History Allergies Allergy/AdvReac Type Severity Reaction Status Date / Time No Known Allergies Allergy Verified 09/21/23 08:30 Surgical - Exam - General no distress, moderate pain - Eyes no normal ocular movement, no pale - ENT normal nares, normal mucosa - Respiratory normal expansion, normal respiratory effort - Abdomen Abdomen: soft, non tender - Psychiatric oriented to time, oriented to person, oriented to place Assessment and Plan Assessment: OR for right-sided ureteroscopy, holmium laser lithotripsy, stone basketing and stent insertion
--- NOTE | 2023-09-22 09:53 | XR ---
EXAMINATION TYPE: XR KUB DATE OF EXAM: 09/22/2023 Comparison: None Clinical History: 78-year-old male preoperative exam N20.0 CALCULUS OF KIDNEY Findings: Multiple pelvic fibulas. Partially visualized left hip arthroplasty. Moderate to severe degenerative change right hip. Approximately 3 calcifications are present at the right mid abdomen ranging in size from 6 mm to 1.5 cm. Nonobstructive bowel gas pattern. Impression: Approximate 3 right-sided renal calculi, largest measuring 1.5 cm. Multiple pelvic phleboliths.
[2023-09-22] MEDS: LACTATED RINGERS 1,000 ML IV ONE (09:59)
[2023-09-22 10:11] VITALS: TEMP 97.8
[2023-09-22] MEDS: DEXAMETHASONE SOD PHOSPHATE 4 MG/ML 1 ML VIAL IV ONE (10:22)
[2023-09-22] MEDS: ONDANSETRON 4 MG/2 ML VIAL IVP ONE (10:22)
[2023-09-22] MEDS ORDERED: PROPOFOL 10 MG/ML 20 ML VIAL IV ONE (10:30)
[2023-09-22] MEDS ORDERED: fentaNYL (PF) 50 MCG/ML 2 ML AMP ONE (10:30)
[2023-09-22] MEDS ORDERED: LIDOCAINE 1% INJ 10MG/ML (20 ML MDV) ONE (10:30)
[2023-09-22] MEDS ORDERED: SUCCINYLCHOLINE CHLORIDE 200 MG/10 ML VIAL IV ONE (10:30)
[2023-09-22] MEDS: HYDROmorphone 0.5 MG/0.5 ML SYRINGE IVP PRN (12:53)
[2023-09-22] MEDS: KETOROLAC 15 MG/ML 1 ML VIAL IVP ONE (13:17)
[2023-09-22 13:56] VITALS: RESP 20
--- NOTE | 2023-09-22 14:30 | P.OP ---
Date of Procedure: 09/22/23 Preoperative Diagnosis: Right renal stone Postoperative Diagnosis: Same Procedure(s) Performed: Cystoscopy, right ureteroscopy, holmium laser lithotripsy, stone basketing and stent insertion Implants: 6 [place] by 26cm stent in the right ureter left on a string Anesthesia: NUNU Surgeon: Tyler Chiu Estimated Blood Loss (ml): 5 Pathology: other (right renal stones) Condition: stable Disposition: PACU Indications for Procedure: This is an 78-year-old male with a history of a 1.4 cm right-sided lower pole stone, and a 6 mm right-sided upper pole stone, he is symptomatic from his right-sided renal stone. Of note he also has history of left-sided renal mass. Discussed getting given his symptoms from the right-sided renal stones and the potential need for nephrectomy on the left side I recommend addressing the stones initially followed by the renal mass. Discussed with him option of a right-sided ureteroscopy with holmium laser. Aware of the risk which includes but not limited to bleeding, infection, injury to the ureter. Risk of anesthes ia was also discussed. He understood all the risk and agreed to proceed Operative Findings: 2 large stones within the lower pole, an additional stone within the midpole Description of Procedure: Patient was brought to the operating room, general anesthesia was induced. He was prepped and draped in sterile fashion and placed in dorsolithotomy position. Cystoscopy fitted with a 21 [place] sheath was inserted per urethra, cystoscopy was performed which showed no abnormality within the bladder. Of note patient did have an enlarged median lobe with slight intravesical extension, at this point attention was carried to the right ureteral orifice which was intubated with a sensor wire. Next under fluoroscopy and 1113 [place] access sheath was passed over the wire and into the proximal ureter. Next a flexible ureteroscope was inserted through the access sheath, renoscopy was performed which showed 2 large stones within the lower pole and additional stones within the midpole. The stones within the lower pole were repositioned into the renal pelvis. Using the holmium laser the stones were dusted, both lower pole stones and the upper p ole stone were dusted, any sizable stone fragments were removed using the stone basket. Repeat renoscopy showed no sizable stones or injury to the kidney, on fluoroscopy there was no radiopaque densities visualized. Pullback ureteroscopy was performed which showed no injury to the ureter or any ureteral stones, as ureteroscope was withdrawn and a sensor wire was advanced through. Next a ureteral stent was passed over the wire, the proximal curl was visualized on fluoroscopy and the distal curl was visualized using the cystoscope. The stent was left on a string and taped to the patient penis. Patient tolerated procedure well was taken to recovery in stable condition
[2023-09-22 14:39] VITALS: BP 170/77; PULSE 73
--- NOTE | 2023-09-22 17:32 | FL ---
EXAMINATION TYPE: FL guidance operating room DATE OF EXAM: 09/22/2023 Comparison: None Clinical History: 78-year-old male CYSTOSCOPY LITH Findings: fl 47.5 seconds dap 0.14579 mGycm2. cysto litho mei 5 images submitted. Impression: Fluoroscopy during urology procedure as above.
== END 2023-09-22 14:39 | disposition home or self-care (01) ==
LOC: OR 09:29
PROVIDERS: ATTEND Urology
DX: N20.0 Calculus of kidney (principal); E78.5 Hyperlipidemia, unspecified; I10 Essential (primary) hypertension; I25.10 Atherosclerotic heart disease of native coronary artery without angina pectoris; I25.2 Old myocardial infarction; E07.9 Disorder of thyroid, unspecified; K21.9 Gastro-esophageal reflux disease without esophagitis; Z79.890 Hormone replacement therapy; Z87.891 Personal history of nicotine dependence; Z79.899 Other long term (current) drug therapy; Z79.82 Long term (current) use of aspirin
CPT/HCPCS: 52356; 82365; 74018; C2625; C1894; C1758; C1769; J0330; J1100; J0690; J2405; J2001; J3010; J1885; J2704; J1170

== ENCOUNTER → 2023-10-15 | Outpatient (CLI) | payer MEDICARE, OTHER ==
[2023-10-15 15:34] LABS: Blood Urea Nitrogen 10.1 mg/dL (9.0-27.0); Calcium 9.2 mg/dL (8.7-10.3); Carbon Dioxide 26.3 mmol/L (21.6-31.8); Chloride 103 mmol/L (96-109); Glucose 132 mg/dL (70-110); Potassium 4.3 mmol/L (3.5-5.5); Sodium 140 mmol/L (135-145)
[2023-10-15 16:21] LABS: Basophils # (A) 0.04 X 10*3/uL (0.00-0.10); Basophils % (A) 0.7 %; Eosinophils # (A) 0.18 X 10*3/uL (0.04-0.35); HCT 42.4 % (39.6-50.0); HGB 14.4 g/dL (13.0-17.0); Lymphocytes # (A) 1.49 X 10*3/uL (0.90-5.00); Lymphocytes % (A) 24.4 %; MCH 34.8 pg (27.0-32.0); MCV 102.4 FL (80.0-97.0); Mean Platelet Volume 10.5 FL (9.5-12.2); Monocytes # (A) 0.55 X 10*3/uL (0.20-1.00); NRBC Per 100 WBC 0 X 10*3/uL (0.00-0.01); Neutrophils # (A) 3.83 X 10*3/uL (1.80-7.70); Neutrophils % (A) 62.7 %; Platelet Count 165 X 10*3/uL (140-440); RBC 4.14 X 10*6/uL (4.40-5.60)
== END | disposition home or self-care (01) ==
LOC: LABPAT 09:12
PROVIDERS: ATTEND Family Medicine
DX: Z01.818 Encounter for other preprocedural examination (principal); D41.02 Neoplasm of uncertain behavior of left kidney; I49.9 Cardiac arrhythmia, unspecified
CPT/HCPCS: 36415; 80048; 85025; 86850; 86900; 86901; 93005

== ENCOUNTER 2023-10-22 05:47 | Inpatient (IN) | payer MEDICARE, OTHER ==
[2023-10-19 11:55] VITALS: BMI 30.4
--- NOTE | 2023-10-21 20:45 | P.HPIHPCON ---
History of Present Illness H&P Date: 10/21/23 Chief Complaint: Left renal mass This is a 78-year-old male with a history of a 4.8 cm left-sided renal mass. Mass is completely endophytic and central is not amenable to a nephron sparing surgery. I reviewed the images with the patient and his discussed with them this is highly concerning for renal cell carcinoma, option of robotic radical nephrectomy was discussed with him. Discussed option of doing a renal mass biopsy prior to proceeding. At this point they agreed to proceed with a radical nephrectomy. Aware the risk which includes but not limited to bleeding, infection, injury to nearby organs which includes but not limited to, spleen pancreas and bowel. Discussed also potential of needing hemodialysis in the short and terminal supervisor. Risk of cancer recurrence and potential of additional treatments was also discussed. Discussed also the need for postoperative surveillance. Medical complication was also discussed. He understood all the risk and agreed to proceed with a left-sided robotic radical nephrectomy Consent for Procedure: I have explained the operation/procedure to the patient, including the risks, benefits, side effects, alternative therapies (including not receiving the proposed treatment or service), the likelihood of the patient achieving his/her goals, and potential recuperation problems for the procedure/sedation/analgesia, as well as any blood products, if indicated. I also explained to the patient the risks, benefits and side effects of the alternatives, as well as the risks related to not receiving the proposed procedure, care, treatment, or services. Past Medical History Past Medical History: Coronary Artery Disease (CAD), Cancer, Eye Disorder, GERD/Reflux, Hyperlipidemia, Hypertension, Myocardial Infarction ([place]), Renal Disease, Thyroid Disorder Additional Past Medical History / Comment(s): Hx malignant neoplasm of thyroid, pre-glaucoma, "bad neck"- C4-5, kidney stones, mass Lt. kidney, pre diabetes Last Myocardial Infarction Date:: 1998 History of Any Multi-Drug Resistant Organisms: None Reported Past Surgical History: Heart Catheterization, Joint Replacement, Orthopedic Surgery Additional Past Surgical History / Comment(s): hemorrhoidectomy, hammer toe Rt. foot, thyroidectomy, Lt. SABRINA, mei. cataracts, lithotripsy Past Anesthesia/Blood Transfusion Reactions: No Reported Reaction Smoking Status: Former smoker - Past Family History Mother Family Medical History: No Reported History Daughter(s) Family Medical History: Cancer Medications and Allergies Home Medications Medication Instructions Recorded Confirmed Type Levothyroxine Sodium [Synthroid] 150 mcg PO QAM 10/01/15 10/19/23 History Simvastatin [Zocor] 40 mg PO HS 10/01/15 10/19/23 History Aspirin [Adult Low Dose Aspirin EC] 81 mg PO HS 07/16/20 10/19/23 History Losartan [Cozaar] 25 mg PO QAM 08/12/21 10/19/23 History Latanoprost Ophth [Xalatan 0.005%] 1 drops BOTH EYES HS 10/19/23 10/19/23 History Allergies Allergy/AdvReac Type Severity Reaction Status Date / Time No Known Allergies Allergy Verified 10/19/23 11:13 Surgical - Exam - General no distress, no pain - ENT normal nares, normal mucosa - Respiratory normal expansion, normal respiratory effort - Psychiatric oriented to time, oriented to person, oriented to place Assessment and Plan Assessment: OR for left-sided radical nephrectomy
[2023-10-22] MEDS ORDERED: LIDOCAINE 1% (10MG/ML) FOR IV START INTRADERMA PRN (06:02)
[2023-10-22] MEDS: LACTATED RINGERS 1,000 ML IV SCH (06:20)
[2023-10-22] MEDS: LACTATED RINGERS 1,000 ML IV ONE ×2 (06:24→11:04)
[2023-10-22] MEDS: ONDANSETRON 4 MG/2 ML VIAL IVP ONE ×2 (06:43→11:55)
[2023-10-22] MEDS: DEXAMETHASONE SOD PHOSPHATE 4 MG/ML 1 ML VIAL IV ONE (06:43)
[2023-10-22] MEDS: MIDAZOLAM 2 MG/2 ML VIAL IVP ONE (06:51)
[2023-10-22] MEDS ORDERED: MIDAZOLAM 2 MG/2 ML VIAL IV PRN (07:00)
[2023-10-22] MEDS: BUPIVACAINE (PF) 0.25% 30 ML VIAL SQ ONE (07:30)
[2023-10-22] MEDS ORDERED: HYDROmorphone 1 MG/ML 1 ML SYRINGE IVP PRN (11:35)
[2023-10-22] MEDS: HYDROmorphone 0.5 MG/0.5 ML SYRINGE IVP PRN (11:55)
[2023-10-22] MEDS: droPERidol 5 MG/2 ML VIAL IVP ONE (12:11)
[2023-10-22] MEDS: DEXTROSE 5%-0.45% NACL 1,000 ML IV SCH (15:52)
--- NOTE | 2023-10-22 16:19 | P.OP ---
Date of Procedure: 10/22/23 Preoperative Diagnosis: Left renal mass Postoperative Diagnosis: Same Procedure(s) Performed: Left robotic radical nephrectomy Implants: None Anesthesia: NUNU Surgeon: Tyler Chiu Estimated Blood Loss (ml): 50 Pathology: other (Left renal mass) Condition: stable Disposition: PACU Indications for Procedure: This is a 78-year-old male with a history of a 4.8 cm left-sided renal mass. Mass is completely endophytic and central is not amenable to a nephron sparing surgery. I reviewed the images with the patient and his discussed with them this is highly concerning for renal cell carcinoma, option of robotic radical nephrectomy was discussed with him. Discussed option of doing a renal mass biopsy prior to proceeding. At this point they agreed to proceed with a radical nephrectomy. Aware the risk which includes but not limited to bleeding, infection, injury to nearby organs which includes but not limited to, spleen pancreas and bowel. Discussed also potential of needing hemodialysis in the short and terminal gauger. Risk of cancer recurrence and potential of additional treatments was also discussed. Discussed also the need for postoperative surveillance. Medical complication was also discussed. He understood all the risk and agreed to proceed with a left-sided robotic radical nephrectomy Description of Procedure: The patient was taken to the operating room . General anesthesia was induced. She was prepped and draped in sterile fashion, she was placed in modified flank position . All pressure points were padded. The abdominal insufflation was achieved with the Veress needle. A 8 mm camera port was placed. Robotic trocars and veterinary assistant technician ports were placed under direct vision. The robot was docked into place. The colon was mobilized medially by incising along the white line of Toldt. Next the spleen and the pancrease were mobilized. Once the bowel, spleen and pancreas were mobilized. At this time the gonadal vessel was visualized. Once the gonadal vessel and ureter was visualized , next after the psoas plane was developed the ureter and gonadal vessel was retracted anteriorly off the psoas muscle. Dissection proceeded cranially towards the renal hilum. The upper pole attachments were dissected. Care was taken to safely mobilize the kidney free of all visceral structures. The renal vessels were dissected. At this point the renal vessels were exposed. Of note patient had 2 renal arteries, the upper pole renal artery was ligated using the robotic clip skatesman. Next the main renal hilum was ligated using the vascular stapler. The adrenal gland was mobilized. Lateral and remaining kidney attachments were released. The ureter was dissected further distally. The ureter was ligated using the vascular stapler. The kidney was placed in an Endo Catch bag. Hemostatic agent were a pplied to the surgical spared. The plane between the kidney and the adrenal plan was dissected using the vessel sealer the robot was then de-docked and the specimen was then removed by extending the veterinary assistant technician port. Fascia was closed with one layer using #1 PDS in running . Skin was closed with subcuticular sutures and dermabond. The patient was awoken from general anesthesia in stable condition. Please refer to the final pathology report for final diagnosis
[2023-10-22] MEDS: HEPARIN SODIUM,PORCINE 5,000 UNIT/ML 1 ML VIAL SQ SCH (17:39)
[2023-10-22] MEDS: HYDROcodone/APAP 5-325MG 1 EACH TAB PO PRN (17:40)
[2023-10-22] MEDS: ATORVASTATIN 20 MG TAB PO SCH (20:45)
[2023-10-22] MEDS: LATANOPROST 0.005% OPHTH DROPS 2.5 ML BTL BOTH EYES SCH (20:46)
[2023-10-22] MEDS: ONDANSETRON 4 MG/2 ML VIAL IVP PRN (20:50)
[2023-10-22] MEDS: FAMOTIDINE 20 MG TAB PO STA (22:10)
[2023-10-23] MEDS: hydrALAZINE HCL 10 MG TAB PO STA (00:35)
[2023-10-23] MEDS: LEVOTHYROXINE 75 MCG TAB PO SCH (06:22)
[2023-10-23] MEDS: LOSARTAN 25 MG TAB PO SCH (08:20)
[2023-10-23 08:36] VITALS: BP 131/69; PULSE 67; RESP 17; TEMP 98.4
[2023-10-23 10:21] LABS: HCT 37.2 % (39.6-50.0); HGB 12.7 g/dL (13.0-17.0); MCH 34.9 pg (27.0-32.0); MCHC 34.1 g/dL (32.0-37.0); MCV 102.2 FL (80.0-97.0); Mean Platelet Volume 10.9 FL (9.5-12.2); NRBC Per 100 WBC 0 X 10*3/uL (0.00-0.01); Platelet Count 131 X 10*3/uL (140-440); RBC 3.64 X 10*6/uL (4.40-5.60); RDW 12.2 % (11.5-14.5); WBC 10.54 X 10*3/uL (4.50-10.00)
[2023-10-23 15:34] LABS: BUN/Creat Ratio 9.93 Ratio (12.00-20.00); Blood Urea Nitrogen 13.9 mg/dL (9.0-27.0); Glucose 172 mg/dL (70-110)
[2023-10-23 15:35] LABS: Calcium 8.8 mg/dL (8.7-10.3); Carbon Dioxide 20.9 mmol/L (21.6-31.8); Chloride 103 mmol/L (96-109); Potassium 4.3 mmol/L (3.5-5.5); Sodium 138 mmol/L (135-145)
--- NOTE | 2023-10-23 19:53 | P.DS ---
Providers Date of admission: 10/22/23 05:47 Attending physician: Tyler Chiu MD Primary care physician: Jeffrey Barrios [facility] Course: This is a 78-year-old male with history of left-sided renal mass. Underwent a left robotic radical nephrectomy on October 21. Patient was admitted to the hospital postoperatively. Please see op note dated October 21 for surgery details. Patient catheter was removed on postop day #1, he was discharged home on postop day #1, at time of discharge he was tolerating a diet, ambulating, pain was controlled Plan - Discharge Summary Discharge Rx Participant: Yes New Discharge Prescriptions: New HYDROcodone/APAP 5-325MG [[place] 5-325] 1 tab PO Q6HR PRN 3 Days #12 tab PRN Reason: Pain No Action Simvastatin [Zocor] 40 mg PO HS Levothyroxine Sodium [Synthroid] 150 mcg PO QAM Aspirin [Adult Low Dose Aspirin EC] 81 mg PO HS Losartan [Cozaar] 25 mg PO QAM Latanoprost Ophth [Xalatan 0.005%] 1 drops BOTH EYES HS Discharge Medication List Levothyroxine Sodium [Synthroid] 150 mcg PO QAM 10/01/15 [History] Simvastatin [Zocor] 40 mg PO HS 10/01/15 [History] Aspirin [Adult Low Dose Aspirin EC] 81 mg PO HS 07/16/20 [History] Losartan [Cozaar] 25 mg PO QAM 08/12/21 [History] Latanoprost Ophth [Xalatan 0.005%] 1 drops BOTH EYES HS 10/19/23 [History] HYDROcodone/APAP 5-325MG [[place] 5-325] 1 tab PO Q6HR PRN 3 Days #12 tab 10/23/23 [Rx] Follow up Appointment(s)/Referral(s): Tyler Chiu MD [STAFF PHYSICIAN] - 10/29/23 9:40 am Patient Instructions/Handouts: Nephrectomy (DC) Discharge Disposition: HOME SELF-CARE
--- NOTE | 2023-10-24 20:04 | P.ANPRN ---
Procedure Note - Anesthesia - Nerve Block Performed Bilateral Erector Spinae Single Time Out Performed: Yes Date of Procedure: 10/22/23 Procedure Start Time: 06:50 Procedure Stop Time: 06:58 Location of Patient: PreOp Indication: Acute Post-Operative Pain, Requested by Surgeon Sedation Type: Sedate with meaningful contact maintained Preparation: Sterile Prep Position: Prone Needle Types: Pajunk Needle Gauge: 21 Ultrasound used to visualize needle placement: Yes Ultrasound used to observe medication spread: Yes Blood Aspirated: No Pain Paresthesia on Injection Noted: No Resistance on Injection: Normal Image Stored and Saved: Yes Events: Uneventful and Well Tolerated (Ropivacaine 0.5% 15 cc plus normal saline 10 cc plus dexamethasone 4 mg given bilaterally at L1)
== END 2023-10-23 13:40 | disposition home or self-care (01) | DRG 661 ==
LOC: 2ORMAIN 05:47 → EDSTATUS 07:30 → 4SSUR 13:52
PROVIDERS: ADMIT Urology; ATTEND Urology
PROC: 8E0W4CZ Robotic Assisted Procedure of Trunk Region, Percutaneous Endoscopic Approach (ICD-10-PCS; 2023-10-22)
PROC: 3E0T3BZ Introduction of Anesthetic Agent into Peripheral Nerves and Plexi, Percutaneous Approach (ICD-10-PCS; 2023-10-22)
PROC: 0TT14ZZ Resection of Left Kidney, Percutaneous Endoscopic Approach (ICD-10-PCS; principal; 2023-10-22 07:30)
DX: N28.89 Other specified disorders of kidney and ureter (principal); I10 Essential (primary) hypertension; E78.5 Hyperlipidemia, unspecified; I25.10 Atherosclerotic heart disease of native coronary artery without angina pectoris; E03.9 Hypothyroidism, unspecified; Z79.890 Hormone replacement therapy; I25.2 Old myocardial infarction; K21.9 Gastro-esophageal reflux disease without esophagitis; Z79.82 Long term (current) use of aspirin; Z85.850 Personal history of malignant neoplasm of thyroid; Z87.442 Personal history of urinary calculi; Z87.891 Personal history of nicotine dependence; Z88.1 Allergy status to other antibiotic agents; Z98.42 Cataract extraction status, left eye; Z98.41 Cataract extraction status, right eye; R73.03 Prediabetes
CPT/HCPCS: 64999; 80048; 85027; 88307

== ENCOUNTER → 2024-04-22 | Outpatient (CLI) | payer MEDICARE, OTHER ==
--- NOTE | 2024-04-22 15:15 | CT ---
EXAMINATION TYPE: CT abdomen wo con CT DLP: 792 mGycm, Automated exposure control for dose reduction was used. DATE OF EXAM: 04/22/2024 3:02 PM COMPARISON: CT abdomen pelvis 09/06/2023 CLINICAL INDICATION:Male, 79 years old with history of C64.2 MALIGNANT NEOPLASM OF LEFT KIDNEY; f/u f or malignant neoplasm of left kidney. TECHNIQUE: Standard CT of the abdomen without IV or oral contrast. Lack of IV or oral contrast limi ts evaluation of solid and hollow organ viscera. Coronal and sagittal reformats were performed. FINDINGS: LOWER CHEST: Minimal bibasilar linear scarring and/or atelectasis. Small aortic valvular calcificatio ns. Small coronary artery calcifications. Minimal bilateral gynecomastia. ABDOMEN LIVER: Diffusely hypoattenuating parenchyma. No focal lesion within the limitations of a noncontrast exam. GALLBLADDER AND BILE DUCTS: Unremarkable noncontrast appearance. PANCREAS: Unremarkable noncontrast appearance. SPLEEN: Unremarkable noncontrast appearance. ADRENAL GLANDS: Unremarkable noncontrast appearance.. KIDNEYS AND URETERS: No evidence of hydronephrosis right kidney. Nonspecific right perinephric fat st randing is similar. Nonobstructive right lower pole 4 mm renal calculus. Left kidney surgically absen t with some residual scarring/stranding in this region. No suspicious nodularity within the surgical bed. STOMACH AND BOWEL: Small hiatal hernia, duodenum is unremarkable. No focal bowel wall thickening or s urrounding inflammatory changes. No evidence of bowel obstruction. PERITONEUM/RETROPERITONEUM: No evidence of pneumoperitoneum or free fluid. Similar left mid abdomen m esentery fat stranding and tiny lymph nodes. Similar bilateral lower retroperitoneal stranding change s. VASCULATURE: Mild atherosclerotic calcifications are present throughout the abdominal aorta and its b ranches. No evidence of aortic aneurysm. Ectasia of the infrarenal abdominal aorta measuring up to 2. 7 cm. MUSCULOSKELETAL: No acute osseous abnormalities. Mild disc degeneration changes are present throughou t the thoracolumbar spine.. No aggressive osseous lesion. LYMPH NODES: No gross evidence for lymphadenopathy. SOFT TISSUE/ABDOMINAL WALL: Unremarkable IMPRESSION: 1. Post left nephrectomy changes without evidence for recurrent or metastatic disease within the limi tations of a noncontrast exam. 2. 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 3. Nonobstructive right renal calculus. 4. Hepatic steatosis. 5. Stable ectasia of the infrarenal abdominal aorta measuring up to 2.7 cm. [facility], , 04/22/2024 3:13 PM
--- NOTE | 2024-04-22 16:30 | XR ---
EXAMINATION TYPE: XR chest 2V DATE OF EXAM: 04/22/2024 2:56 PM COMPARISON: 09/06/2023 CLINICAL INDICATION: Male, 79 years old with history of C64.2 MALIGNANT NEOPLASM OF LEFT KIDNEY, TECHNIQUE: XR chest 2V view(s) obtained. FINDINGS: The heart size is normal. The pulmonary vasculature is normal. The lungs are clear. IMPRESSION: 1. No acute pulmonary process. [facility], , 04/22/2024 4:28 PM
== END | disposition home or self-care (01) ==
LOC: RADCTMAIN 14:36
PROVIDERS: ATTEND Urology
DX: C64.2 Malignant neoplasm of left kidney, except renal pelvis (principal); N20.0 Calculus of kidney; K76.0 Fatty (change of) liver, not elsewhere classified; Z90.5 Acquired absence of kidney
CPT/HCPCS: 71046; 74150

== ENCOUNTER 2024-12-08 09:10 | Day surgery (SDC) | payer MEDICARE, OTHER ==
--- NOTE | 2024-12-08 07:59 | P.GSHP ---
History of Present Illness H&P Date: 12/08/24 CHIEF COMPLAINT: Colon screen HISTORY OF PRESENT ILLNESS: The patient is a 79-year-old male who presents for colon screen. Lower endoscopy was offered for further evaluation and management. PAST MEDICAL HISTORY: Please see list. PAST SURGICAL HISTORY: Please see list. MEDICATIONS: Please see list. ALLERGIES: Please see list. SOCIAL HISTORY: No illicit drug use FAMILY HISTORY: No reports of Crohn disease or ulcerative colitis. REVIEW OF ORGAN SYSTEMS: CONSTITUTIONAL: No reports of fevers or chills. PHYSICAL EXAM: VITAL SIGNS: Stable GENERAL: Well-developed pleasant in no acute distress. HEENT: No scleral icterus. Extraocular movements grossly intact. Moist buccal mucosa. NECK: Supple without lymphadenopathy. CHEST: Unlabored respirations. Equal bilateral excursions. CARDIOVASCULAR: Regular rate and rhythm. Distal 2+ pulses. ABDOMEN: Soft, nontender, nondistended. MUSCULOSKELETAL: No clubbing, cyanosis, or edema. ASSESSMENT: 1. Colon screen. PLAN: 1. Recommend proceeding with a lower endoscopy Past Medical History Past Medical History: Coronary Artery Disease (CAD), Cancer, Eye Disorder, GERD/Reflux, Hyperlipidemia, Hypertension, Myocardial Infarction ([place]), Osteoarthritis (OA), Thyroid Disorder Additional Past Medical History / Comment(s): HX CANCER PARATHYROID. USING RX FOR PRE-GLAUCOMA. hx. colon polyps, hx. kidney cancer, pain right hip Last Myocardial Infarction Date:: 1998 History of Any Multi-Drug Resistant Organisms: None Reported Past Surgical History: Heart Catheterization, Joint Replacement, Orthopedic Surgery Additional Past Surgical History / Comment(s): HEMORROIDECTOMY. HAMMER TOE rt foot. THYROIDECTOMY & parathyroidectomy, left hip replaced, mei cataracts, left nephrectomy 2023 Past Anesthesia/Blood Transfusion Reactions: No Reported Reaction Smoking Status: Former smoker - Past Family History Mother Family Medical History: No Reported History Daughter(s) Family Medical History: Cancer Medications and Allergies Home Medications Medication Instructions Recorded Confirmed Type Levothyroxine Sodium [Synthroid] 150 mcg PO QAM 10/01/15 12/06/24 History Simvastatin [Zocor] 40 mg PO HS 10/01/15 12/06/24 History Losartan [Cozaar] 50 mg PO QAM 08/12/21 12/06/24 History Latanoprost Ophth [Xalatan 0.005%] 1 drops BOTH EYES HS 10/19/23 12/06/24 History Allergies Allergy/AdvReac Type Severity Reaction Status Date / Time ketorolac [From Toradol] AdvReac Abdominal Verified 12/06/24 12:45 Pain
[~2024-12-08 09:10] MED LIST changes: -LACTATED RINGERS 1,000 ML IV SCH; -MIDAZOLAM 2 MG/2 ML VIAL IV PRN
[2024-12-08 09:28] VITALS: TEMP 97.3
[2024-12-08] MEDS: LACTATED RINGERS 1,000 ML IV SCH (09:34)
[2024-12-08] MEDS: IV FLUID CONTINUATION 1,000 ML IV ONE (09:38)
[2024-12-08] MEDS ORDERED: PROPOFOL 10 MG/ML 20 ML VIAL IV ONE (09:46)
[2024-12-08 10:14] VITALS: RESP 16
--- NOTE | 2024-12-08 10:42 | P.PCN ---
Date of Procedure: 12/08/24 Description of Procedure: PREOPERATIVE DIAGNOSIS: Personal history of colon polyps Colonoscopy screening POSTOPERATIVE DIAGNOSIS: Tubular adenoma hepatic flexure Tubular adenoma, rectum Sigmoid diverticulosis Internal hemorrhoids, grade 3 OPERATION: Colonoscopy to the ileocecal valve and appendiceal orifice, cecum Colonoscopy with cold forceps biopsy SURGEON: Rosalinda Melchor MD. ANESTHESIA: MAC. INDICATIONS: The patient is an 79-year-old male who presents personal history of colon polyps. Last colonoscopy 5 years. Benefits and risks were described and informed consent was obtained. DESCRIPTION OF PROCEDURE: The patient had undergone Suprep. The patient had been brought into the opera tin room and laid in the left lateral decubitus position. After adequate intravenous sedation, the rectum was examined with 2% lidocaine jelly. The prostate was unremarkable. External hemorrhoids were encountered. The rectal tone was within normal limits. No lesions were palpated in the rectal vault. An Olympus colonoscope was advanced until the cecum, ileocecal valve and appendiceal orifice were clearly viewed. The prep was good. Sigmoid diverticulosis was encountered. Colonic polyps were found and removed. No evidence of focal colitis was found. Retroflexion of the scope demonstrated grade 3 internal hemorrhoids without active bleeding or inflammation. The colon was desufflated. The patient had tolerated the procedure well. Withdrawal time was over 6 minutes. FINDINGS: Aronchick preparation quality scale 2 (1-5) Internal hemorrhoids, grade 3 External hemorrhoids, grade 3. No arteriovenous malformations. Sigmoid diverticulosis Removal of 2 polyps: - Cold forceps biopsy at 30 cm from the anal verge, 4 mm adenoma, rectum - Cold forceps biopsy at hepatic flexure, 6 mm adenoma No focal colitis. RECOMMENDATIONS: Recommend repeat colonoscopy 3 years, 2027 Plan - Discharge Summary Discharge Rx Participant: No New Discharge Prescriptions: Continue Simvastatin [Zocor] 40 mg PO HS Levothyroxine Sodium [Synthroid] 150 mcg PO QAM Losartan [Cozaar] 50 mg PO QAM Latanoprost Ophth [Xalatan 0.005%] 1 drops BOTH EYES HS Discharge Medication List Levothyroxine Sodium [Synthroid] 150 mcg PO QAM 10/01/15 [History] Simvastatin [Zocor] 40 mg PO HS 10/01/15 [History] Losartan [Cozaar] 50 mg PO QAM 08/12/21 [History] Latanoprost Ophth [Xalatan 0.005%] 1 drops BOTH EYES HS 10/19/23 [History] Follow up Appointment(s)/Referral(s): Rosalinda Melchor MD [STAFF PHYSICIAN] - As Needed Patient Instructions/Handouts: *Surgery [facility] - (Anesthesia) Discharge Instructions Outpatient Surgery, Colorectal Polyps (GEN), Diverticulosis Diet (GEN), Colonoscopy (DC) Activity/Diet/Wound Care/Special Instructions: Repeat colonoscopy 3 years, 2027 Discharge Disposition: HOME SELF-CARE
[2024-12-08 10:44] VITALS: BP 147/77; PULSE 54
== END 2024-12-08 11:26 | disposition home or self-care (01) ==
LOC: ORWHC2ENDO 09:10
PROVIDERS: ATTEND Surgery Plastic and Reconstructive Surgery
DX: Z12.11 Encounter for screening for malignant neoplasm of colon (principal); D12.3 Benign neoplasm of transverse colon; D12.8 Benign neoplasm of rectum; K64.2 Third degree hemorrhoids; K57.30 Diverticulosis of large intestine without perforation or abscess without bleeding; E78.5 Hyperlipidemia, unspecified; I10 Essential (primary) hypertension; I25.10 Atherosclerotic heart disease of native coronary artery without angina pectoris; I25.2 Old myocardial infarction; E07.9 Disorder of thyroid, unspecified; M19.90 Unspecified osteoarthritis, unspecified site; Z79.890 Hormone replacement therapy; Z85.528 Personal history of other malignant neoplasm of kidney; Z86.0100 Personal history of colon polyps, unspecified; Z87.891 Personal history of nicotine dependence; Z90.89 Acquired absence of other organs
CPT/HCPCS: 88305; 45380; J2704